=== PATIENT | female | born 1945 | race American Indian/Alaskan Native ===

== ENCOUNTER 2016-11-17 17:52 | Inpatient (IN) | payer MEDICARE ==
--- NOTE | 2016-11-17 19:00 | Emergency Department Report ---
Chief Complaint: Syncope Stated Complaint: GENERAL WEAKNESS - HPI History of Present Illness: Patient here with daughter whom states patient passed out and feels disoriented since today. Reports hx of stroke with residual left-sided weakness worsened today, seizure d /o, Dm2, HTN, current cigarette smoker. - Exam Vital Signs: Vital Signs 11/17/16 18:26 Temperature 100.0 F H Pulse Rate 89 Respiratory 14 Rate Blood Pressure 143/60 [Right] O2 Sat by Pulse 99 Oximetry Physical Exam: General: NAD. Neuro: Disoriented-appearing. Slow to respond/react. MSE screening note: Focused history and physical exam performed. Due to findings the following was ordered: ED Medical Decision Making - Medical Decision Making Patient to see MD in main ED. ED Disposition for MSE Condition: Stable
[2016-11-17 19:40] LABS: Hematocrit 43.1 % (30.3-42.9); Hemoglobin 14.6 gm/dl (10.1-14.3); Mean Corpuscular HGB Conc 34 % (30-34); Mean Corpuscular Hemoglobin 32 pg (28-32); Mean Corpuscular Volume 93 fl (79-97); Platelet Count 182 K/mm3 (140-440); Red Blood Count 4.63 M/mm3 (3.65-5.03); Red Cell Distribution Width 14.7 % (13.2-15.2); White Blood Count 9.2 K/mm3 (4.5-11.0)
[2016-11-17 19:45] LABS: INR 1.03 (0.87-1.13); Partial Thromboplastin Time 24.1 Sec. (24.2-36.6)
[2016-11-17 19:59] LABS: Alanine Aminotransferase 11 units/L (7-56); Albumin 4.4 g/dL (3.9-5); Albumin/Globulin Ratio 1.2 %; Alkaline Phosphatase 83 units/L (35-129); Anion Gap 20 mmol/L; BUN/Creatinine Ratio 9.09; Bilirubin,Total 0.3 mg/dL (0.1-1.2); Blood Urea Nitrogen 20 mg/dL (7-17); Calcium 9.4 mg/dL (8.4-10.2); Carbon Dioxide 22 mmol/L (22-30); Chloride 99.8 mmol/L (98-107); Glucose 119 mg/dL (65-100); Magnesium 2.1 mg/dL (1.7-2.3); Potassium 4.8 mmol/L (3.6-5.0); Sodium 137 mmol/L (137-145); Total Protein 8.2 g/dL (6.3-8.2)
--- NOTE | 2016-11-17 20:25 | Cat Scan Report ---
FINAL REPORT EXAM: CT HEAD/BRAIN WO CON HISTORY: neuro deficits < 6hrs or sx present upon awakening TECHNIQUE: CT head without contrast PRIORS: None. FINDINGS: There is a sellar mass present. It measures 2.1 x 3.0 centimeters. There is some thinning and bony destructive change observed. There is age related parenchymal volume loss. Patchy and confluent areas of hypodensity present in the supratentorial white matter. There is more focal hypodensity at the right caudate head internal capsule extending into the basal ganglia on the right consistent with a remote infarct. No acute intra or extra-axial hemorrhage identified. IMPRESSION: Large pituitary region mass. Differential consideration includes pituitary adenoma, meningioma or other neoplastic etiologies. Large aneurysm cannot be excluded. An MRI of the brain with pituitary protocol preferably with intravenous contrast is recommended for further evaluation Chronic small vessel ischemic changes More focal remote infarct involving the right caudate head, internal capsule and basal ganglia CTR 2 protocol initiated at the time of this dictation
[2016-11-17] MEDS ORDERED: TYLENOL PO ONE (20:56)
--- NOTE | 2016-11-17 21:01 | Emergency Department Report ---
HPI - General Chief Complaint: Syncope Time Seen by Provider: 11/17/16 20:39 - HPI HPI: Room 3 The patient is a 71-year-old female presenting with a chief complaint syncope. The patient's last known well time was last night 21:001 the patient went to sleep. The patient was awakened this morning at 11:30 but appeared disoriented. Patient had difficulty finding her shirt and seemed confused. Close to noon while the patient was sitting she slumped over and lost consciousness briefly. Family states when she came to ceasing lethargic. Family members thought the patient's blood sugar may have dropped so they gave her food. When the daughter came home at approximately 15:0 the patient still had not improved. Family states the patient tried to stand but was unable to move the left foot, subsequently EMS was called. The patient currently denies complaints. When asked how she is feeling the patient replies "good." The patient denies headache, chest pain, shortness of breath or fever at home. Family states they noticed a "cough that is out of this world" today. 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 - Family History Family history: no significant - Social History Smoking Status: Current Every Day Smoker Substance Use Type: Alcohol (occasional) ED Review of Systems ROS: Stated complaint: GENERAL WEAKNESS Other details as noted in HPI Comment: All other systems reviewed and negative Constitutional: fever Eyes: denies: eye pain, eye discharge, vision change ENT: denies: ear pain, throat pain Respiratory: cough Cardiovascular: denies: chest pain, palpitations Endocrine: no symptoms reported Gastrointestinal: denies: abdominal pain, nausea, diarrhea Genitourinary: denies: urgency, dysuria, discharge Musculoskeletal: denies: back pain, joint swelling, arthralgia Skin: denies: rash, lesions Neurological: confusion, other (syncope). denies: headache Psychiatric: denies: anxiety, depression Hematological/Lymphatic: denies: easy bleeding, easy bruising Physical Exam - Physical Exam Vital Signs: Vital Signs 11/17/16 11/17/16 11/17/16 18:26 20:33 20:37 Temperature 100.0 F H Pulse Rate 89 78 76 Respiratory 14 12 28 H Rate Blood Pressure 148/57 Blood Pressure 143/60 [Right] O2 Sat by Pulse 99 97 Oximetry 11/17/16 20:54 Temperature 102.5 F H Pulse Rate Respiratory Rate Blood Pressure Blood Pressure [Right] O2 Sat by Pulse Oximetry Physical Exam: GENERAL: The patient is well-developed well-nourished female sitting on stretcher not appearing to be in acute distress. [] HEENT: Normocephalic. Atraumatic. Extraocular motions are intact. Patient has moist mucous membranes. NECK: Supple. No meningitic signs are noted. Trachea midline CHEST/LUNGS: Clear to auscultation. There is no respiratory distress noted. Occasional cough HEART/CARDIOVASCULAR: Regular. There is no tachycardia. There is no gallop rub or murmur. ABDOMEN: Abdomen is soft, nontender. Patient has normal bowel sounds. There is no abdominal distention. SKIN: There is no rash. There is no edema. There is no diaphoresis. NEURO: The patient is awake and oriented. The patient is cooperative. Cranial nerves II through XII grossly intact. Patient is not fully cooperative with neurological exam. The patient has normal speech MUSCULOSKELETAL: There is no evidence of acute injury. ED Course Vital Signs 11/17/16 11/17/16 11/17/16 18:26 20:33 20:37 Temperature 100.0 F H Pulse Rate 89 78 76 Respiratory 14 12 28 H Rate Blood Pressure 148/57 Blood Pressure 143/60 [Right] O2 Sat by Pulse 99 97 Oximetry 11/17/16 20:54 Temperature 102.5 F H Pulse Rate Respiratory Rate Blood Pressure Blood Pressure [Right] O2 Sat by Pulse Oximetry ED Medical Decision Making - Lab Data Result diagrams: 11/17/16 19:10 11/17/16 19:10 Laboratory Tests 11/17/16 11/17/16 11/17/16 19:10 19:10 19:10 WBC 9.2 RBC 4.63 Hgb 14.6 H Hct 43.1 H MCV 93 MCH 32 MCHC 34 RDW 14.7 Plt Count 182 Add Manual Diff Complete Total Counted 100 Seg Neuts % (Manual) 87.0 H Band Neutrophils % 1.0 Lymphocytes % (Manual) 9.0 L Reactive Lymphs % (Man) 0 Monocytes % (Manual) 3.0 Eosinophils % (Manual) 0 Basophils % (Manual) 0 Metamyelocytes % 0 Myelocytes % 0 Promyelocytes % 0 Blast Cells % 0 Nucleated RBC % Not Reportable Seg Neutrophils # Man 8.0 H Band Neutrophils # 0.1 Lymphocytes # (Manual) 0.8 L Abs React Lymphs (Man) 0.0 Monocytes # (Manual) 0.3 Eosinophils # (Manual) 0.0 Basophils # (Manual) 0.0 Metamyelocytes # 0.0 Myelocytes # 0.0 Promyelocytes # 0.0 Blast Cells # 0.0 WBC Morphology Not Reportable Hypersegmented Neuts Not Reportable Hyposegmented Neuts Not Reportable Hypogranular Neuts Not Reportable Smudge Cells Not Reportable Toxic Granulation Not Reportable Toxic Vacuolation Not Reportable Dohle Bodies Not Reportable Pelger-Huet Anomaly Not Reportable Cindy Rods Not Reportable Platelet Estimate Consistent w auto Clumped Platelets Not Reportable Plt Clumps, EDTA Not Reportable Large Platelets Not Reportable Giant Platelets Not Reportable Platelet Satelliting Not Reportable Plt Morphology Comment Not Reportable RBC Morphology Not Reportable Dimorphic RBCs Not Reportable Polychromasia Not Reportable Hypochromasia Not Reportable Poikilocytosis Not Reportable Anisocytosis 1+ Microcytosis Not Reportable Macrocytosis Not Reportable Spherocytes Not Reportable Pappenheimer Bodies Not Reportable Sickle Cells Not Reportable Target Cells Not Reportable Tear Drop Cells Not Reportable Ovalocytes 1+ Helmet Cells Not Reportable [place] Bodies Not Reportable [place] Rings Not Reportable Lily Cells Not Reportable Bite Cells Not Reportable Crenated Cell Not Reportable Elliptocytes Not Reportable Acanthocytes (Spur) Not Reportable Rouleaux Not Reportable Hemoglobin C Crystals Not Reportable Schistocytes Not Reportable Malaria parasites Not Reportable [place] Bodies Not Reportable Hem Pathologist Commnt No PT 13.4 INR 1.03 APTT 24.1 L Thrombin Time Sodium 137 Potassium 4.8 Chloride 99.8 Carbon Dioxide 22 Anion Gap 20 BUN 20 H Creatinine 2.2 H Estimated GFR 26 BUN/Creatinine Ratio 9.09 Glucose 119 H Lactic Acid Calcium 9.4 Magnesium 2.1 Total Bilirubin 0.3 AST 13 ALT 11 Alkaline Phosphatase 83 Total Creatine Kinase CK-MB (CK-2) CK-MB (CK-2) Rel Index Troponin T < 0.010 Total Protein 8.2 Albumin 4.4 Albumin/Globulin Ratio 1.2 TSH Free T4 Salicylates Acetaminophen Plasma/Serum Alcohol 11/17/16 11/17/16 11/17/16 19:10 19:10 19:10 WBC RBC Hgb Hct MCV MCH MCHC RDW Plt Count Add Manual Diff Total Counted Seg Neuts % (Manual) Band Neutrophils % Lymphocytes % (Manual) Reactive Lymphs % (Man) Monocytes % (Manual) Eosinophils % (Manual) Basophils % (Manual) Metamyelocytes % Myelocytes % Promyelocytes % Blast Cells % Nucleated RBC % Seg Neutrophils # Man Band Neutrophils # Lymphocytes # (Manual) Abs React Lymphs (Man) Monocytes # (Manual) Eosinophils # (Manual) Basophils # (Manual) Metamyelocytes # Myelocytes # Promyelocytes # Blast Cells # WBC Morphology Hypersegmented Neuts Hyposegmented Neuts Hypogranular Neuts Smudge Cells Toxic Granulation Toxic Vacuolation Dohle Bodies Pelger-Huet Anomaly Cindy Rods Platelet Estimate Clumped Platelets Plt Clumps, EDTA Large Platelets Giant Platelets Platelet Satelliting Plt Morphology Comment RBC Morphology Dimorphic RBCs Polychromasia Hypochromasia Poikilocytosis Anisocytosis Microcytosis Macrocytosis Spherocytes Pappenheimer Bodies Sickle Cells Target Cells Tear Drop Cells Ovalocytes Helmet Cells [place] Bodies [place] Rings Lily Cells Bite Cells Crenated Cell Elliptocytes Acanthocytes (Spur) Rouleaux Hemoglobin C Crystals Schistocytes Malaria parasites Juno Bodies Hem Pathologist Commnt PT INR APTT Thrombin Time Sodium Potassium Chloride Carbon Dioxide Anion Gap BUN Creatinine Estimated GFR BUN/Creatinine Ratio Glucose Lactic Acid 2.5 H* Calcium Magnesium Total Bilirubin AST ALT Alkaline Phosphatase Total Creatine Kinase CK-MB (CK-2) CK-MB (CK-2) Rel Index Troponin T Total Protein Albumin Albumin/Globulin Ratio TSH Free T4 Salicylates < 0.3 L Acetaminophen < 15.0 Plasma/Serum Alcohol 11/17/16 11/17/16 11/17/16 19:10 19:10 19:10 WBC RBC Hgb Hct MCV MCH MCHC RDW Plt Count Add Manual Diff Total Counted Seg Neuts % (Manual) Band Neutrophils % Lymphocytes % (Manual) Reactive Lymphs % (Man) Monocytes % (Manual) Eosinophils % (Manual) Basophils % (Manual) Metamyelocytes % Myelocytes % Promyelocytes % Blast Cells % Nucleated RBC % Seg Neutrophils # Man Band Neutrophils # Lymphocytes # (Manual) Abs React Lymphs (Man) Monocytes # (Manual) Eosinophils # (Manual) Basophils # (Manual) Metamyelocytes # Myelocytes # Promyelocytes # Blast Cells # WBC Morphology Hypersegmented Neuts Hyposegmented Neuts Hypogranular Neuts Smudge Cells Toxic Granulation Toxic Vacuolation Dohle Bodies Pelger-Huet Anomaly Cindy Rods Platelet Estimate Clumped Platelets Plt Clumps, EDTA Large Platelets Giant Platelets Platelet Satelliting Plt Morphology Comment RBC Morphology Dimorphic RBCs Polychromasia Hypochromasia Poikilocytosis Anisocytosis Microcytosis Macrocytosis Spherocytes Pappenheimer Bodies Sickle Cells Target Cells Tear Drop Cells Ovalocytes Helmet Cells [place] Bodies [place] Rings Lily Cells Bite Cells Crenated Cell Elliptocytes Acanthocytes (Spur) Rouleaux Hemoglobin C Crystals Schistocytes Malaria parasites Juno Bodies Hem Pathologist Commnt PT INR APTT Thrombin Time 15.8 Sodium Potassium Chloride Carbon Dioxide Anion Gap BUN Creatinine Estimated GFR BUN/Creatinine Ratio Glucose Lactic Acid Calcium Magnesium Total Bilirubin AST ALT Alkaline Phosphatase Total Creatine Kinase 96 CK-MB (CK-2) < 1.0 CK-MB (CK-2) Rel Index 1.0 Troponin T < 0.010 Total Protein Albumin Albumin/Globulin Ratio TSH Free T4 Salicylates Acetaminophen Plasma/Serum Alcohol < 0.01 11/17/16 19:10 WBC RBC Hgb Hct MCV MCH MCHC RDW Plt Count Add Manual Diff Total Counted Seg Neuts % (Manual) Band Neutrophils % Lymphocytes % (Manual) Reactive Lymphs % (Man) Monocytes % (Manual) Eosinophils % (Manual) Basophils % (Manual) Metamyelocytes % Myelocytes % Promyelocytes % Blast Cells % Nucleated RBC % Seg Neutrophils # Man Band Neutrophils # Lymphocytes # (Manual) Abs React Lymphs (Man) Monocytes # (Manual) Eosinophils # (Manual) Basophils # (Manual) Metamyelocytes # Myelocytes # Promyelocytes # Blast Cells # WBC Morphology Hypersegmented Neuts Hyposegmented Neuts Hypogranular Neuts Smudge Cells Toxic Granulation Toxic Vacuolation Dohle Bodies Pelger-Huet Anomaly Cindy Rods Platelet Estimate Clumped Platelets Plt Clumps, EDTA Large Platelets Giant Platelets Platelet Satelliting Plt Morphology Comment RBC Morphology Dimorphic RBCs Polychromasia Hypochromasia Poikilocytosis Anisocytosis Microcytosis Macrocytosis Spherocytes Pappenheimer Bodies Sickle Cells Target Cells Tear Drop Cells Ovalocytes Helmet Cells [place] Bodies [place] Rings [place] Cells Bite Cells Crenated Cell Elliptocytes Acanthocytes (Spur) Rouleaux Hemoglobin C Crystals Schistocytes Malaria parasites Juno Bodies Hem Pathologist Commnt PT INR APTT Thrombin Time Sodium Potassium Chloride Carbon Dioxide Anion Gap BUN Creatinine Estimated GFR BUN/Creatinine Ratio Glucose Lactic Acid Calcium Magnesium Total Bilirubin AST ALT Alkaline Phosphatase Total Creatine Kinase CK-MB (CK-2) CK-MB (CK-2) Rel Index Troponin T Total Protein Albumin Albumin/Globulin Ratio TSH 0.592 Free T4 0.78 Salicylates Acetaminophen Plasma/Serum Alcohol - Radiology Data Radiology results: report reviewed (CT head), image reviewed (CT head, chest x- ray) interpreted by me: Chest x-ray-no focal infiltrates, no pneumothorax CT head (read by radiologist)- large pituitary region mass. Differential consideration includes pituitary adenoma, meningioma of the neoplastic etiologies. Large aneurysm cannot be excluded. An MRI of the brain with pituitary protocol preferably with IV contrast is recommended for further evaluation. Chronic small vessel ischemic changes. More focal motor infarct involving the right caudate head, internal capsule and basal ganglia. - Differential Diagnosis syncope, ICH, intracranial mass, pneumonia, hypoglycemia Critical care attestation.: If time is entered above; I have spent that time in minutes in the direct care of this critically ill patient, excluding procedure time. ED Disposition Clinical Impression: Syncope, Fever Disposition: OP ADMITTED IP TO THIS HOSP Is pt being admited?: Yes Does the pt Need Aspirin: Yes Condition: Fair Instructions: Syncope (ED) Referrals: REJI WORRELL [Other] - 3-5 Days Time of Disposition: 21:53 (hospitalist paged)
[2016-11-17 21:09] LABS: Creatine Kinase 96 units/L (30-135)
[2016-11-17 21:26] LABS: Creatine Kinase MB < 1.0 ng/mL (0.0-4.0)
[2016-11-17 21:49] LABS: Basophils % (Manual) 0 % (0.0-1.8); Blastocytes % (Manual) 0 %; Eosinophils % (Manual) 0 % (0.0-4.3)
[2016-11-17 21:50] LABS: Anisocytosis 1+; Diff Status Complete; Ovalocytes 1+; Platelet Estimate Consistent w Auto
[2016-11-17 23:05] LABS: Bilirubin,Urine NEG (Negative); Blood,Urine LG (Negative); Ketones,Urine NEG (Negative); Leukocyte Esterase,Urine NEG (Negative); Mucus,Urine FEW /HPF; Nitrite,Urine NEG (Negative); Urobilinogen,Urine < 2.0 mg/dL (<2.0)
[2016-11-17] MEDS ORDERED: ASPIRIN PO ONE (23:13)
--- NOTE | 2016-11-18 00:05 | Admit Criteria Form ---
Admission Criteria Documentation: SYNCOPE Clinical Indications for Admission to Inpatient Care ( Place 'X' for any and all applicable criteria): Admission is indicated for syncope and ANY ONE of the following (1)(2)(3)(4)(5) (6)(7) : [ X]I. Inpatient admission required rather than observation care (Also use Syncope: Observation Care Criteria as appropriate) because of ANY ONE of the following: [ ]a) Hemodynamic instability that is severe or persistent [ ]b) Cardiac arrhythmias of immediate concern identified or strongly suspected (eg, needs electrophysiologic study) [ ]c) Acute coronary syndrome identified (Also use Myocardial Infarction or Angina Criteria form ) [ ]d) Structural cardiac disorder (eg, aortic stenosis) suspected as cause that requires immediate correction [ ]e) Respiratory symptoms (eg, dyspnea, tachypnea) that are severe or persistent [ ]f) Neurologic signs or symptoms that are severe or persistent ( eg, stroke, seizures, altered mental status) [ ]g) Severe electrolyte abnormalities requiring inpatient care [ ]h) Supplemental oxygen or respiratory treatment for over 24 hrs that are performable only in acute inpatient setting [ ]i) IV fluid to replace significant ongoing (eg, for over 24 hrs ) losses (>3 L/m2 per day) [ ]j) Continuous intravenous infusion of anticoagulation, platelet inhibitor, vasoactive, or antiarrhythmic medication(15)(16) [ ]k) Pulmonary artery catheter monitoring [ ]l) Temporary pacemaker placement(17) [ ]m) Emergent cardioversion(18) [ X]n) Other conditions, treatment or monitoring requiring inpatient admission [ ]II. Suspicion of imminently dangerous cause (eg, rare causes like pericardial tamponade, pulmonary embolism) [ ]III. Syncope causing severe injury requiring hospitalization Extended stay beyond goal length of stay may be needed for(28) [ ]a) Dangerous arrhythmia(15)(23)(27)(29) [ ]b) Myocardial ischemia [ ]c) Seizure disorder [ ]d) Syncope-related injuries The original [employer] content created by [employer] has been revised. The portions of the content which have been revised are identified through the use of italic text or in bold, and Jorge L [employer] has neither reviewed nor approved the modified material. All other unmodified content is copyright [employer]. Please see references footnoted in the original [facility] edition 2016 Admission Criteria Met: Yes
--- NOTE | 2016-11-18 01:40 | Nuclear Medicine Report ---
FINAL REPORT PROCEDURE: NM LUNG SCAN PERF/VENT TECHNIQUE: 5 mCi Tc-99m MAA was injected IV for pulmonary perfusion imaging in multiple projections. 15 MCi xenon-133 was inhaled for pulmonary ventilation imaging in multiple projections. Injection site: RIGHT antecubital fossa. CPT 94036 REGULATORY GUIDELINES: The patient was released based upon guidelines established in [place] State Regulations for Protection Against Radiation, Chapter 6623-26-55-35, Release of Individuals Containing Radioactive Drugs or Implants. HISTORY: eval for pe COMPARISON: No prior studies are available for comparison. FINDINGS: Perfusion: No defects . Ventilation: No defects . IMPRESSION: Normal Examination. There is no evidence of pulmonary embolism.
--- NOTE | 2016-11-18 02:48 | History and Physical Report ---
[id number] History of present illness: 71-year-old woman history of hypertension, diabetes, hypothyroidism comes to the emergency room because while she was sitting at home she had a syncopal episode that lasted for 5 minutes. Family state that she had difficulty walking , she is confused. The brought her to the emergency room for further evaluation Patient denies chest pain, palpitation, shortness of breath, cough, abdominal pain, hematochezia, dysuria, frequency, dysarthria, fever chills, polydipsia polyuria, hot or cold intolerance, easy bruisability, or rash or bleeding from mucosal membrane, rhinorrhea, epistaxis, earache, tinnitus, blurry vision, eye discharge, anxiety, depression. Other review of systems negative PAST SURGICAL HISTORY: Hysterectomy SOCIAL HISTORY: A pack a day, social alcohol use, no drugs FAMILY HISTORY: Hypertension Medications and Allergies Allergies Allergy/AdvReac Type Severity Reaction Status Date / Time No Known Allergies Allergy Verified 11/17/16 23:23 Home Medications Medication Instructions Recorded Confirmed Last Taken Type Levothyroxine [Synthroid] 25 mcg PO QAM 11/17/16 11/17/16 1 Day Ago History Lisinopril [Zestril TAB] 5 mg PO QDAY 11/17/16 11/17/16 1 Day Ago History Simvastatin [Zocor TAB] 20 mg PO QHS 11/17/16 11/17/16 1 Day Ago History Sitagliptin Phosphate [Januvia] 100 mg PO DAILY 11/17/16 11/17/16 1 Day Ago History amLODIPine [Norvasc] 5 mg PO DAILY 11/17/16 11/17/16 1 Day Ago History glipiZIDE [Glucotrol] 5 mg PO BID 11/17/16 11/17/16 1 Day Ago History Clopidogrel [Plavix] 75 mg PO QDAY #30 tablet 11/22/16 Unknown Rx Active Meds: Active Medications Sodium Chloride (Nacl 0.9% 1000 Ml) 1,000 mls @ 75 mls/hr IV DIRECT MARY Exam - Physical Exam Narrative exam: Gen. appearance: Patient lying in bed, no apparent distress HEENT: Normocephalic, atraumatic, pupils equally round and reactive to light, extraocular movement intact, and no sclericterus,. No JVD or thyromegaly or nodule,neck supple, no carotid bruit ,mucous membranes moist, no exudate or erythema Heart: S1, S2, regular rate and rhythm Lungs: Clear to auscultation bilaterally, breathing comfortable Abdomen: Positive bowel sounds, nontender, nondistended, no organomegaly Extremity: No edema, cyanosis, clubbing Skin: No rash, nodules, warm, dry Neuro: Oriented 3, cranial nerves II-12 intact, speech is fluent, left side weakness 4/5 - Constitutional Vitals: Temp Pulse Resp BP Pulse Ox 102.5 F H 82 22 144/57 97 11/17/16 20:54 11/17/16 22:01 11/17/16 22:01 11/17/16 22:01 11/17/16 22:01 Results - Labs CBC & Chem 7: 11/22/16 04:58 11/22/16 04:58 - Imaging and Cardiology EKG: image reviewed (nsr 80, read by me) Chest x-ray: image reviewed (nad, read by me) Assessment and Plan Acute CVA Syncope SIRS Hypertension Diabetes type 2 Admits medicine Obtain MRI of the head, carotid Doppler, echo Do neurochecks, swallow screen Check cardiac enzymes, d-dimer, fingersticks initiate insulin sliding scale Diet IV hydralazine as needed for blood pressure control Start aspirin, statin, DVT prophylaxis Start emperic antibiotic pending cultures Consult neurology, physical and occupational therapy D-dimer positive, obtain VQ scan
[2016-11-18] MEDS ORDERED: MILK OF MAGNESIA PO PRN (05:37)
[2016-11-18] MEDS ORDERED: SODIUM CHLORIDE FLUSH SYRINGE 10 ML IV PRN (05:37)
[2016-11-18] MEDS ORDERED: DULCOLAX PR PRN (05:37)
[2016-11-18] MEDS ORDERED: D50W (25GM) IV PRN (05:37)
[2016-11-18] MEDS ORDERED: TYLENOL PO PRN (05:37)
[2016-11-18] MEDS ORDERED: ZOFRAN IV PRN (05:37)
[2016-11-18] MEDS ORDERED: APRESOLINE IV PRN (05:37)
--- NOTE | 2016-11-18 08:04 | XRay Report ---
PORTABLE CHEST: An AP portable view of the chest demonstrates a normal cardiac contour considering the limits of this technique. The lungs are clear with no evidence of infiltrate, fluid or failure. IMPRESSION: Normal portable chest.
[2016-11-18 08:57] LABS: Creatine Kinase MB 1.6 ng/mL (0.0-4.0)
[2016-11-18 08:58] LABS: Cholesterol 187 mg/dL (50-199); Creatine Kinase 207 units/L (30-135); HDL Cholesterol 44 mg/dL (40-59); LDL Cholesterol,Direct 127 mg/dL (50-130); Triglycerides 81 mg/dL (2-149)
[2016-11-18] MEDS: NOVOLOG SUB-Q SCH ×4 (09:08→23:27)
[2016-11-18] MEDS ORDERED: LOVENOX SUB-Q SCH (10:00)
[2016-11-18] MEDS ORDERED: LEVAQUIN PO SCH (10:00)
--- NOTE | 2016-11-18 10:44 | Event Note ---
Date: 11/18/16 Patient seen and examined. We will continue the plan as outlined in the H&P.
[2016-11-18] MEDS: LOVENOX SUB-Q SCH (11:00)
[2016-11-18] MEDS: ASPIRIN PO SCH (11:23)
[2016-11-18 12:39] LABS: Creatine Kinase MB 1.3 ng/mL (0.0-4.0)
[2016-11-18 12:41] LABS: Creatine Kinase 209 units/L (30-135)
[2016-11-18] MEDS: LEVAQUIN PO SCH (12:54)
--- NOTE | 2016-11-18 15:38 | Magnetic Resonance Report ---
MRI OF THE BRAIN WITHOUT CONTRAST: PROCEDURE: Routine brain protocol without contrast. FINDINGS: Minimal chronic ischemic changes are seen in the brainstem. Chronic lacunar infarcts are seen in the basal ganglia bilaterally. There are scattered areas of hyperintense T2 and FLAIR signal in the periventricular white matter, slightly more pronounced on the right. There are no intra-axial masses or extra-axial collections. The posterior fossa is otherwise unremarkable. There is no restricted diffusion. Cortical atrophy is present. The ventricles are slightly prominent but otherwise unremarkable. There is a prominent mass lesion in the pituitary gland. The approximate dimensions are 2.3 x 2.4 x 1.4 cm. The larger portion of the soft tissue density is slightly eccentric to the left. There is no extrinsic compression of the optic chiasm. The signal characteristics are slightly heterogeneous on T2 images with no definite cystic component. The remaining visualized extracranial structures are normal. IMPRESSION: 1. No acute findings. 2. Prominent pituitary mass. Differential diagnosis is limited without intravenous contrast. The primary considerations are pituitary macroadenoma, meningioma, craniopharyngioma. 3. Bilateral chronic lacunar infarcts with extensive periventricular microangiopathic ischemic changes.
--- NOTE | 2016-11-18 18:04 | Echocardiography Report ---
Transthoracic Echocardiogram Indication: Stroke BP: 137/52 Findings Left Ventricle: The left ventricular chamber size is normal. Mild concentric left ventricular hypertrophy is observed. Global left ventricular wall motion and contractility are within normal limits. Global left ventricular systolic function is normal. The estimated ejection fraction is 60-65%. Abnormal left ventricular diastolic filling is observed, consistent with impaired relaxation. Left Atrium: The left atrial chamber size is normal. Right Ventricle: The right ventricular cavity size is normal. The right ventricular global systolic function is normal. Right Atrium: The right atrial cavity size is normal. The interatrial septum appears normal. Aortic Valve: The aortic valve structure is normal. There is trace of aortic regurgitation. There is no evidence of aortic stenosis. Mitral Valve: The mitral valve leaflets appear normal. There is trace of mitral regurgitation. There is no evidence of mitral stenosis. Tricuspid Valve: The tricuspid valve leaflets are normal. There is mild tricuspid regurgitation. The right ventricular systolic pressure is calculated at 31 mmHg. There is evidence of mild pulmonary hypertension. There is no tricuspid stenosis. Pulmonic Valve: The pulmonic valve appears normal. There is trace pulmonic regurgitation. There is no pulmonic stenosis. Pericardium: There is no pericardial effusion. Aorta: There is no dilatation of the aortic root. Venous: The inferior vena cava appears normal in size. Contrast: Intravenous agitated saline contrast was used to assess intracardiac shunting. Measurements Chambers MM Name Value Normal Range Ao root diameter (MM) 3 cm (2 - 3.7) LA dimension (AP) MM 2.7 cm (1.9 - 4) LA:Ao ratio (MM) 0.9 ratio - AV cusp separation (MM) 1.5 cm (1.5 - 2.6) Chambers 2D Name Value Normal Range IVSd (2D) 1.07 cm (0.6 - 1.1) LVPWd (2D) 1 cm (0.6 - 1.1) IVS:LVPW ratio (2D) 1.07 ratio - LVIDd (2D) 3.47 cm (3.7 - 5.6) LVIDs (2D) 2.27 cm (2 - 3.8) LV FS (Teichholz) (2D) 34.6 % - LV FS (cube) (2D) 34.6 % - EF Teichholz (2D) 64.9 % - LA dimension (AP) 2D 2.9 cm (1.9 - 4) Volumes/Mass Name Value Normal Range LA ESV SP 4CH (MOD) 18 ml - LA ESV SP 2CH (MOD) 16 ml - LA ESV BP (MOD) 18 ml - LA ESV BP (MOD) index 10.5 ml/m2 - Diastolic/Systolic Function Name Value Normal Range MV E-wave Vmax 0.57 m/sec - MV deceleration time 239 msec - MV A-wave Vmax 0.83 m/sec - MV E:A ratio 0.7 ratio - LV septal e' Vmax 0.08 m/sec - LV lateral e' Vmax 0.11 m/sec - LV E:e' septal ratio 6.9 ratio - LV E:e' lateral ratio 5 ratio - Aortic Valve Name Value Normal Range AV VTI 27.9 cm - AV mean gradient 5 mmHg - LVOT diameter 2 cm - LVOT VTI 27 cm - LVOT mean gradient 4 mmHg - SV LVOT 85 ml - BON (continuity VTI) 3.04 cm2 - Mitral Valve Name Value Normal Range MV PHT 54 msec - MVA (PHT) 4.07 cm2 - Tricuspid Valve Name Value Normal Range TR Vmax 2.65 m/sec - TR peak gradient 28 mmHg - RAP 3 mmHg - RVSP 31 mmHg - Pulmonic Valve/Qp:Qs Name Value Normal Range PV Vmax 0.82 m/sec - PV peak gradient 3 mmHg - HI end-diastolic Vmax 0.62 m/sec - PV acceleration time 134 msec -
[2016-11-18] MEDS: ZOCOR PO SCH (21:57)
--- NOTE | 2016-11-19 06:59 | Consultation ---
History of Present Illness Consult date: 11/19/16 Chief complaint: passed out, asked to see for CVA History of present illness: This is a 71 YO F who was brought to the hospital because she passed out. There is not a lot of history in chart and the patient can not give much. Pt was also confused per chart. On my arrival she is awake and alert, will answer questions but is a poor historian. No current complaints. Past History Past Medical History: diabetes, hypertension, hypothyroidism Past Surgical History: hysterectomy Social history: lives with family Family history: hypertension Medications and Allergies Allergies Allergy/AdvReac Type Severity Reaction Status Date / Time No Known Allergies Allergy Verified 11/17/16 23:23 Home Medications Medication Instructions Recorded Confirmed Last Taken Type Levothyroxine [Synthroid] 25 mcg PO QAM 11/17/16 11/17/16 1 Day Ago History Lisinopril [Zestril] 5 mg PO QDAY 11/17/16 11/17/16 1 Day Ago History Simvastatin [Zocor TAB] 20 mg PO QHS 11/17/16 11/17/16 1 Day Ago History Sitagliptin Phosphate [Januvia] 100 mg PO DAILY 11/17/16 11/17/16 1 Day Ago History amLODIPine [Norvasc] 5 mg PO DAILY 11/17/16 11/17/16 1 Day Ago History glipiZIDE [Glucotrol] 5 mg PO BID 11/17/16 11/17/16 1 Day Ago History Active Meds: Active Medications Acetaminophen (Tylenol) 650 mg PO Q4H PRN PRN Reason: Pain, Mild (1-3) Last Admin: 11/18/16 23:28 Dose: 650 mg Aspirin (Aspirin) 325 mg PO QDAY [facility] Last Admin: 11/18/16 11:23 Dose: 325 mg Bisacodyl (Dulcolax) 10 mg [place] QDAY PRN PRN Reason: Constipation Dextrose (D50w (25gm)) 50 ml IV PRN PRN PRN Reason: Hypoglycemia Enoxaparin Sodium (Lovenox) 30 mg SUB-Q QDAY [facility] Last Admin: 11/18/16 11:00 Dose: 30 mg Hydralazine HCl (Apresoline) 5 mg IV Q6H PRN PRN Reason: Keep SBP between 160-185 mm Hg Sodium Chloride (Nacl 0.9% 1000 Ml) 1,000 mls @ 75 mls/hr IV DIRECT [facility] Insulin Aspart (Novolog) 0 units SUB-Q ACHS [facility] PRN Reason: Protocol Last Admin: 11/18/16 23:27 Dose: 1 units Levofloxacin (Levaquin) 250 mg PO Q24HR [facility] Last Admin: 11/18/16 12:54 Dose: 250 mg Magnesium Hydroxide (Milk Of Magnesia) 30 ml PO Q4H PRN PRN Reason: Constipation Ondansetron HCl (Zofran) 4 mg IV Q8H PRN PRN Reason: N/V unrelieved by Reglan Simvastatin (Zocor) 20 mg PO QHS [facility] Last Admin: 11/18/16 21:57 Dose: 20 mg Sodium Chloride (Sodium Chloride Flush Syringe 10 Ml) 10 ml IV PRN PRN PRN Reason: LINE FLUSH Review of Systems Neurological: change in mentation Physical Examination - Vital Signs Vital Signs: Vital Signs Temp Pulse Resp BP Pulse Ox 100.0 F H 89 14 143/60 99 11/17/16 18:26 11/17/16 18:26 11/17/16 18:26 11/17/16 18:26 11/17/16 18:26 - Constitutional General appearance: comfortable - EENT EENT: Present: PERRL - Respiratory Respiratory: Present: lungs clear - Cardiovascular Cardiovascular: Present: regular rate - Neurologic Cranial nerve examination: PERRL, EOMI, VFF, face symmetric, tongue midline Speech examination: intact Detailed motor examination: grossly full strength in Reflexes: 1+: ankle, bicep, knee, tricep Results - Laboratory Findings CBC and BMP: 11/17/16 19:10 11/17/16 19:10 Abnormal Lab Findings: Abnormal Labs 11/18/16 11/18/16 11/18/16 08:06 12:05 20:58 POC Glucose 185 H Total Creatine Kinase 207 H 209 H - Diagnostic Findings Additional findings: Mri brain no acute findings, pt with pituitary mass Assessment and Plan Syncope Recommend: echo results reviewed, carotids pending MRI brain reviewed, no acute stroke, + pituitary mass which pt says she knew about previously. consider neurosurgical eval vs getting more info wi th old records Consider EEG Continue care for her medical issues as you are doing Thank you for this consult.
[2016-11-19] MEDS: NOVOLOG SUB-Q SCH ×5 (08:27→21:57)
[2016-11-19] MEDS: LOVENOX SUB-Q SCH (10:24)
[2016-11-19] MEDS: LEVAQUIN PO SCH (10:24)
[2016-11-19] MEDS: ASPIRIN PO SCH (10:24)
--- NOTE | 2016-11-19 11:34 | Progress Note ---
Assessment and Plan Assessment and plan: 1. Acute CVA. 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 Patient also with bilateral chronic lacunar infarcts with extensive periventricular microangiopathic ischemic changes. Patient exhibits some left hemiplegia. Continue aspirin. Neurology following. Echocardiogram reveals EF of 60-65% with mild concentric left ventricular hypertrophy--Otherwise normal. Carotid ultrasound pending. 2. Syncope. Echocardiogram normal and carotid ultrasound pending. Etiology likely secondary to #1. 3. Diabetes mellitus type 2, uncontrolled. Continue sliding-scale regular insulin and Accu-Cheks. 4. Hypertension. Continue antihypertensives medications. 5. Elevated d-dimer. VQ scan negative for PE. 6. Acute renal failure. Etiology likely secondary to vasomotor nephropathy. Continue IV fluid hydration. Continue to monitor renal function and Follow-up BMP in the morning. History Interval history: No new issues overnight. No chest pain or shortness of breath. Hospitalist Physical - Constitutional Vitals: Temp Pulse Resp BP Pulse Ox 98.7 F 67 18 124/57 95 11/19/16 07:35 11/19/16 07:35 11/19/16 07:35 11/19/16 07:35 11/19/16 07:35 General appearance: Present: no acute distress, well-nourished - EENT Eyes: Present: PERRL, EOM intact ENT: hearing intact, clear oral mucosa, dentition normal - Neck Neck: Present: supple, normal ROM - Respiratory Respiratory effort: normal Respiratory: bilateral: CTA - Cardiovascular Rhythm: regular Heart Sounds: Present: S1 & S2. Absent: gallop, rub - Extremities Extremities: no ischemia, No edema, Full ROM - Abdominal General gastrointestinal: soft, non-tender, non-distended, normal bowel sounds - Integumentary Integumentary: Present: clear, warm, dry - Neurologic Neurologic: CNII-XII intact, moves all extremities, other (left sided weakness) Results - Labs CBC & Chem 7: 11/17/16 19:10 11/17/16 19:10 Labs: Laboratory Last Values WBC 9.2 K/mm3 (4.5-11.0) 11/17/16 19:10 RBC 4.63 M/mm3 (3.65-5.03) 11/17/16 19:10 Hgb 14.6 gm/dl (10.1-14.3) H 11/17/16 19:10 Hct 43.1 % (30.3-42.9) H 11/17/16 19:10 MCV 93 fl (79-97) 11/17/16 19:10 MCH 32 pg (28-32) 11/17/16 19:10 MCHC 34 % (30-34) 11/17/16 19:10 RDW 14.7 % (13.2-15.2) 11/17/16 19:10 Plt Count 182 K/mm3 (140-440) 11/17/16 19:10 Add Manual Diff Complete 11/17/16 19:10 Total Counted 100 11/17/16 19:10 Seg Neuts % (Manual) 87.0 % (40.0-70.0) H 11/17/16 19:10 Band Neutrophils % 1.0 % 11/17/16 19:10 Lymphocytes % (Manual) 9.0 % (13.4-35.0) L 11/17/16 19:10 Reactive Lymphs % (Man) 0 % 11/17/16 19:10 Monocytes % (Manual) 3.0 % (0.0-7.3) 11/17/16 19:10 Eosinophils % (Manual) 0 % (0.0-4.3) 11/17/16 19:10 Basophils % (Manual) 0 % (0.0-1.8) 11/17/16 19:10 Metamyelocytes % 0 % 11/17/16 19:10 Myelocytes % 0 % 11/17/16 19:10 Promyelocytes % 0 % 11/17/16 19:10 Blast Cells % 0 % 11/17/16 19:10 Nucleated RBC % Not Reportable 11/17/16 19:10 Seg Neutrophils # Man 8.0 K/mm3 (1.8-7.7) H 11/17/16 19:10 Band Neutrophils # 0.1 K/mm3 11/17/16 19:10 Lymphocytes # (Manual) 0.8 K/mm3 (1.2-5.4) L 11/17/16 19:10 Abs React Lymphs (Man) 0.0 K/mm3 11/17/16 19:10 Monocytes # (Manual) 0.3 K/mm3 (0.0-0.8) 11/17/16 19:10 Eosinophils # (Manual) 0.0 K/mm3 (0.0-0.4) 11/17/16 19:10 Basophils # (Manual) 0.0 K/mm3 (0.0-0.1) 11/17/16 19:10 Metamyelocytes # 0.0 K/mm3 11/17/16 19:10 Myelocytes # 0.0 K/mm3 11/17/16 19:10 Promyelocytes # 0.0 K/mm3 11/17/16 19:10 Blast Cells # 0.0 K/mm3 11/17/16 19:10 WBC Morphology Not Reportable 11/17/16 19:10 Hypersegmented Neuts Not Reportable 11/17/16 19:10 Hyposegmented Neuts Not Reportable 11/17/16 19:10 Hypogranular Neuts Not Reportable 11/17/16 19:10 Smudge Cells Not Reportable 11/17/16 19:10 Toxic Granulation Not Reportable 11/17/16 19:10 Toxic Vacuolation Not Reportable 11/17/16 19:10 Dohle Bodies Not Reportable 11/17/16 19:10 Pelger-Huet Anomaly Not Reportable 11/17/16 19:10 Cindy Rods Not Reportable 11/17/16 19:10 Platelet Estimate Consistent w auto 11/17/16 19:10 Clumped Platelets Not Reportable 11/17/16 19:10 Plt Clumps, EDTA Not Reportable 11/17/16 19:10 Large Platelets Not Reportable 11/17/16 19:10 Giant Platelets Not Reportable 11/17/16 19:10 Platelet Satelliting Not Reportable 11/17/16 19:10 Plt Morphology Comment Not Reportable 11/17/16 19:10 RBC Morphology Not Reportable 11/17/16 19:10 Dimorphic RBCs Not Reportable 11/17/16 19:10 Polychromasia Not Reportable 11/17/16 19:10 Hypochromasia Not Reportable 11/17/16 19:10 Poikilocytosis Not Reportable 11/17/16 19:10 Anisocytosis 1+ 11/17/16 19:10 Microcytosis Not Reportable 11/17/16 19:10 Macrocytosis Not Reportable 11/17/16 19:10 Spherocytes Not Reportable 11/17/16 19:10 Pappenheimer Bodies Not Reportable 11/17/16 19:10 Sickle Cells Not Reportable 11/17/16 19:10 Target Cells Not Reportable 11/17/16 19:10 Tear Drop Cells Not Reportable 11/17/16 19:10 Ovalocytes 1+ 11/17/16 19:10 Helmet Cells Not Reportable 11/17/16 19:10 [place] Bodies Not Reportable 11/17/16 19:10 [place]away Rings Not Reportable 11/17/16 19:10 Lily Cells Not Reportable 11/17/16 19:10 Bite Cells Not Reportable 11/17/16 19:10 Crenated Cell Not Reportable 11/17/16 19:10 Elliptocytes Not Reportable 11/17/16 19:10 Acanthocytes (Spur) Not Reportable 11/17/16 19:10 Rouleaux Not Reportable 11/17/16 19:10 Hemoglobin C Crystals Not Reportable 11/17/16 19:10 Schistocytes Not Reportable 11/17/16 19:10 Malaria parasites Not Reportable 11/17/16 19:10 Juno Bodies Not Reportable 11/17/16 19:10 Hem Pathologist Commnt No 11/17/16 19:10 PT 13.4 Sec. (12.2-14.9) 11/17/16 19:10 INR 1.03 (0.87-1.13) 11/17/16 19:10 APTT 24.1 Sec. (24.2-36.6) L 11/17/16 19:10 Thrombin Time 15.8 Sec. (15.1-19.6) 11/17/16 19:10 D-Dimer > 73206 ng/mlDDU (0-234) H 11/17/16 19:10 Sodium 137 mmol/L (137-145) 11/17/16 19:10 Potassium 4.8 mmol/L (3.6-5.0) 11/17/16 19:10 Chloride 99.8 mmol/L (98-107) 11/17/16 19:10 Carbon Dioxide 22 mmol/L (22-30) 11/17/16 19:10 Anion Gap 20 mmol/L 11/17/16 19:10 BUN 20 mg/dL (7-17) H 11/17/16 19:10 Creatinine 2.2 mg/dL (0.7-1.2) H 11/17/16 19:10 Estimated GFR 26 ml/min 11/17/16 19:10 BUN/Creatinine Ratio 9.09 % 11/17/16 19:10 Glucose 119 mg/dL (65-100) H 11/17/16 19:10 POC Glucose 185 (70-105) H 11/18/16 20:58 Lactic Acid 2.5 mmol/L (0.7-2.0) H* 11/17/16 19:10 Calcium 9.4 mg/dL (8.4-10.2) 11/17/16 19:10 Magnesium 2.1 mg/dL (1.7-2.3) 11/17/16 19:10 Total Bilirubin 0.3 mg/dL (0.1-1.2) 11/17/16 19:10 AST 13 units/L (5-40) 11/17/16 19:10 ALT 11 units/L (7-56) 11/17/16 19:10 Alkaline Phosphatase 83 units/L (35-129) 11/17/16 19:10 Total Creatine Kinase 209 units/L (30-135) H 11/18/16 12:05 CK-MB (CK-2) 1.3 ng/mL (0.0-4.0) 11/18/16 12:05 CK-MB (CK-2) Rel Index 0.6 (0-4) 11/18/16 12:05 Troponin T < 0.010 ng/mL (0.00-0.029) 11/18/16 12:05 Total Protein 8.2 g/dL (6.3-8.2) 11/17/16 19:10 Albumin 4.4 g/dL (3.9-5) 11/17/16 19:10 Albumin/Globulin Ratio 1.2 % 11/17/16 19:10 Triglycerides 81 mg/dL (2-149) 11/18/16 08:06 Cholesterol 187 mg/dL (50-199) 11/18/16 08:06 LDL Cholesterol Direct 127 mg/dL (50-130) 11/18/16 08:06 HDL Cholesterol 44 mg/dL (40-59) 11/18/16 08:06 Cholesterol/HDL Ratio 4.25 % 11/18/16 08:06 TSH 0.592 mlU/mL (0.270-4.200) 11/17/16 19:10 Free T4 0.78 ng/dL (0.76-1.46) 11/17/16 19:10 Urine Color Yellow (Yellow) 11/17/16 22:30 Urine Turbidity Clear (Clear) 11/17/16 22:30 Urine pH 5.0 (5.0-7.0) 11/17/16 22:30 Ur Specific [place] 1.019 (1.003-1.030) 11/17/16 22:30 Urine Protein 100 mg/dl mg/dL (Negative) 11/17/16 22:30 Urine Glucose (UA) Neg mg/dL (Negative) 11/17/16 22:30 Urine Ketones Neg mg/dL (Negative) 11/17/16 22:30 Urine Blood Lg (Negative) 11/17/16 22:30 Urine Nitrite Neg (Negative) 11/17/16 22:30 Urine Bilirubin Neg (Negative) 11/17/16 22:30 Urine Urobilinogen < 2.0 mg/dL (<2.0) 11/17/16 22:30 Ur Leukocyte Esterase Neg (Negative) 11/17/16 22:30 Urine WBC (Auto) 1.0 /HPF (0.0-6.0) 11/17/16 22:30 Urine RBC (Auto) 17.0 /HPF (0.0-6.0) 11/17/16 22:30 U Epithel Cells (Auto) < 1.0 /HPF (0-13.0) 11/17/16 22:30 Urine Mucus Few /HPF 11/17/16 22:30 Salicylates < 0.3 mg/dL (2.8-20.0) L 11/17/16 19:10 Acetaminophen < 15.0 ug/mL (10.0-30.0) 11/17/16 19:10 Plasma/Serum Alcohol < 0.01 gm% (0-0.07) 11/17/16 19:10
--- NOTE | 2016-11-19 13:01 | Consultation ---
History of Present Illness - Reason for Consult Consult date: 11/19/16 Evaluate for Acute IRU - History of Present Illness 71 y.o. female admitted from home due to syncopal episode; also with associated gait dysfunction, worsening left sided weakness from baseline and altered mental status. 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 On today, pt and family report knowledge of mass; diagnosed many years ago when patient lived in [place]. Pt noted to have some deficits with mobility since admission. Consult requested for post-acute care placement recommendations. Past History Past Medical History: diabetes, hypertension, hypothyroidism, seizures, stroke, other (pituitary mass) Past Surgical History: hysterectomy Social history: lives with family (dtr), smoking Family history: diabetes, hypertension, stroke Medications and Allergies Allergies Allergy/AdvReac Type Severity Reaction Status Date / Time No Known Allergies Allergy Verified 11/17/16 23:23 Home Medications Medication Instructions Recorded Confirmed Last Taken Type Levothyroxine [Synthroid] 25 mcg PO QAM 11/17/16 11/17/16 1 Day Ago History Lisinopril [Zestril] 5 mg PO QDAY 11/17/16 11/17/16 1 Day Ago History Simvastatin [Zocor TAB] 20 mg PO QHS 11/17/16 11/17/16 1 Day Ago History Sitagliptin Phosphate [Januvia] 100 mg PO DAILY 11/17/16 11/17/16 1 Day Ago History amLODIPine [Norvasc] 5 mg PO DAILY 11/17/16 11/17/16 1 Day Ago History glipiZIDE [Glucotrol] 5 mg PO BID 11/17/16 11/17/16 1 Day Ago History Levofloxacin [Levaquin TAB] 500 mg PO QDAY #5 tablet 11/19/16 Unknown Rx Active Meds: Active Medications Acetaminophen (Tylenol) 650 mg PO Q4H PRN PRN Reason: Pain, Mild (1-3) Last Admin: 11/18/16 23:28 Dose: 650 mg Aspirin (Aspirin) 325 mg PO QDAY [facility] Last Admin: 11/19/16 10:24 Dose: 325 mg Bisacodyl (Dulcolax) 10 mg [place] QDAY PRN PRN Reason: Constipation Dextrose (D50w (25gm)) 50 ml IV PRN PRN PRN Reason: Hypoglycemia Enoxaparin Sodium (Lovenox) 30 mg SUB-Q QDAY [facility] Last Admin: 11/19/16 10:24 Dose: 30 mg Hydralazine HCl (Apresoline) 5 mg IV Q6H PRN PRN Reason: Keep SBP between 160-185 mm Hg Sodium Chloride (Nacl 0.9% 1000 Ml) 1,000 mls @ 75 mls/hr IV DIRECT [facility] Insulin Aspart (Novolog) 0 units SUB-Q ACHS [facility] PRN Reason: Protocol Last Admin: 11/19/16 12:00 Dose: Not Given Levofloxacin (Levaquin) 250 mg PO Q24HR [facility] Last Admin: 11/19/16 10:24 Dose: 250 mg Magnesium Hydroxide (Milk Of Magnesia) 30 ml PO Q4H PRN PRN Reason: Constipation Ondansetron HCl (Zofran) 4 mg IV Q8H PRN PRN Reason: N/V unrelieved by Reglan Simvastatin (Zocor) 20 mg PO QHS [facility] Last Admin: 11/18/16 21:57 Dose: 20 mg Sodium Chloride (Sodium Chloride Flush Syringe 10 Ml) 10 ml IV PRN PRN PRN Reason: LINE FLUSH Review of Systems All systems: negative Eyes: bilateral: other (denies any visual changes) Ears, nose, mouth and throat: no headache Cardiovascular: no chest pain, no syncope Respiratory: no cough, no shortness of breath Gastrointestinal: no nausea, no vomiting Genitourinary Female: other (vasquez) Musculoskeletal: gait dysfunction, frequent falls Exam - Constitutional Vitals: Vital Signs - 12hr 11/19/16 11/19/16 11/19/16 04:40 07:35 11:37 Temperature 98.8 F 98.7 F 98.7 F Pulse Rate [ 67 65 Left Radial] Pulse Rate [ 69 Right Radial] Respiratory 18 18 18 Rate Blood Pressure 120/61 124/57 136/64 [Left Arm] O2 Sat by Pulse 97 95 97 Oximetry 11/19/16 12:13 Temperature Pulse Rate [ Left Radial] Pulse Rate [ Right Radial] Respiratory Rate Blood Pressure [Left Arm] O2 Sat by Pulse 95 Oximetry General appearance: no acute distress, other (sisters present in room) - EENT Eyes: EOM intact ENT: hearing intact - Neck Neck: supple, normal ROM - Respiratory Respiratory effort: normal Respiratory: bilateral: CTA - Cardiovascular Rhythm: regular Heart Sounds: Present: S1 & S2 - Extremities Extremities: No edema - Gastrointestinal General gastrointestinal: Present: soft, non-tender, non-distended, normal bowel sounds - Integumentary Integumentary: Present: clear - Neurologic Neurologic: CNII-XII intact, moves all extremities, other (delayed processing) - Psychiatric Psychiatric: appropriate mood/affect, memory intact (oriented to self, family; place, city and state), cooperative - Allied health notes Allied health notes reviewed: PT (modA for transfers and gait on yesterday; now Giovani with increased gait distance per treating therapist) FIMS assesment as documented by PT/OT/ST: Locomotion- walk/wheelchair Ambulation Distance 26 - Labs CBC & Chem 7: 11/19/16 13:07 11/17/16 19:10 Labs: Laboratory Results - last 72 hr 11/18/16 11/18/16 11/18/16 08:06 08:33 12:05 POC Glucose 98 Total Creatine Kinase 207 H 209 H CK-MB (CK-2) 1.6 1.3 CK-MB (CK-2) Rel Index 0.7 0.6 Troponin T < 0.010 < 0.010 Triglycerides 81 Cholesterol 187 LDL Cholesterol Direct 127 HDL Cholesterol 44 Cholesterol/HDL Ratio 4.25 11/18/16 11/18/16 11/18/16 12:51 15:31 20:58 POC Glucose 109 H 104 185 H Total Creatine Kinase CK-MB (CK-2) CK-MB (CK-2) Rel Index Troponin T Triglycerides Cholesterol LDL Cholesterol Direct HDL Cholesterol Cholesterol/HDL Ratio - Imaging and cardiology CT Scan - head: pending MRI - head: pending Assessment and Plan Patient was assessed and evaluated for Acute Inpatient Rehab Unit. 71 y.o. female s/p syncopal episode, acute CVA ruled out. Pt has a history of seizures and is noted to have chronic lacunar infarcts on MRI; also with known pituitary mass. It is unclear if this has increased in size as pt was informed of this many years ago in [place]; no films for comparison. Functionally, pt is not at baseline, currently requiring Giovani for transfers and gait; previously was independent with mobility and self cares, however, per report with increased falls prior to admission. Ongoing work-up per primary team for etiology of syncopal episode; IVF for acute renal failure also noted on admission. Will continue to follow progress with therapies; pending possible EEG. Thank you for consultation. - Patient Problems (1) Chronic cerebrovascular accident (CVA) Current Visit: Yes Status: Acute (2) Abnormality of gait following cerebrovascular accident (CVA) Current Visit: Yes Status: Acute (3) Pituitary mass Current Visit: Yes Status: Acute (4) Seizure disorder Current Visit: Yes Status: Acute
[2016-11-19 13:44] LABS: Basophils % (Auto) 0.5 % (0.0-1.8); Eosinophils % (Auto) 1.6 % (0.0-4.3); Hematocrit 38.3 % (30.3-42.9); Hemoglobin 12.9 gm/dl (10.1-14.3); Mean Corpuscular HGB Conc 34 % (30-34); Mean Corpuscular Hemoglobin 31 pg (28-32); Mean Corpuscular Volume 92 fl (79-97); Platelet Count 144 K/mm3 (140-440); Red Blood Count 4.16 M/mm3 (3.65-5.03); Red Cell Distribution Width 14.6 % (13.2-15.2); White Blood Count 4.8 K/mm3 (4.5-11.0)
[2016-11-19 13:54] LABS: BUN/Creatinine Ratio 13.33; Calcium 8.3 mg/dL (8.4-10.2); Chloride 104.5 mmol/L (98-107); Potassium 4.1 mmol/L (3.6-5.0)
[2016-11-19] MEDS: ZOCOR PO SCH (21:55)
[2016-11-19] MEDS: NACL 0.9% 1000 ML 1,000 ML IV SCH (21:59)
[2016-11-20 05:39] LABS: Basophils % (Auto) 0.6 % (0.0-1.8); Eosinophils % (Auto) 2.8 % (0.0-4.3); Hematocrit 36.4 % (30.3-42.9); Hemoglobin 12.5 gm/dl (10.1-14.3); Mean Corpuscular HGB Conc 34 % (30-34); Mean Corpuscular Hemoglobin 31 pg (28-32); Mean Corpuscular Volume 91 fl (79-97); Platelet Count 131 K/mm3 (140-440); Red Blood Count 4.02 M/mm3 (3.65-5.03); Red Cell Distribution Width 14.5 % (13.2-15.2); White Blood Count 4.3 K/mm3 (4.5-11.0)
[2016-11-20 05:55] LABS: BUN/Creatinine Ratio 12.94; Calcium 8.3 mg/dL (8.4-10.2); Chloride 106.8 mmol/L (98-107); Potassium 4.3 mmol/L (3.6-5.0)
[2016-11-20] MEDS: ASPIRIN PO SCH (09:14)
[2016-11-20] MEDS: LOVENOX SUB-Q SCH (09:15)
[2016-11-20] MEDS: LEVAQUIN PO SCH (09:15)
[2016-11-20] MEDS: NACL 0.9% 1000 ML 1,000 ML IV SCH ×2 (09:22→22:05)
[2016-11-20] MEDS: NOVOLOG SUB-Q SCH ×4 (09:27→22:05)
--- NOTE | 2016-11-20 10:00 | Progress Note ---
Assessment and Plan Assessment and plan: 1. Acute CVA. 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 Patient also with bilateral chronic lacunar infarcts with extensive periventricular microangiopathic ischemic changes. Patient exhibits some left hemiplegia. Continue aspirin. Neurology following. Echocardiogram reveals EF of 60-65% with mild concentric left ventricular hypertrophy--Otherwise normal. Carotid ultrasound revealed 50- 79% stenosis on the right and less than 50% stenosis on the left. Vascular consultation. 2. Syncope. Echocardiogram normal but carotid ultrasound revealed 50-79% stenosis on the right and less than 50% stenosis on the left. Etiology likely secondary to #1. 3. Diabetes mellitus type 2, uncontrolled. Continue sliding-scale regular insulin and Accu-Cheks. 4. Hypertension. Continue antihypertensives medications. 5. Elevated d-dimer. VQ scan negative for PE. 6. Acute renal failure. Etiology likely secondary to vasomotor nephropathy. Continue IV fluid hydration. Continue to monitor renal function and Follow-up BMP in the morning. History Interval history: No new issues overnight. No chest pain or shortness of breath. Hospitalist Physical - Constitutional Vitals: Temp Pulse Resp BP Pulse Ox 97.3 F L 60 20 139/62 96 11/20/16 07:21 11/20/16 07:21 11/20/16 07:21 11/20/16 07:21 11/20/16 07:21 General appearance: Present: no acute distress, other (sisters present in room) - EENT Eyes: Present: PERRL, EOM intact ENT: hearing intact, clear oral mucosa, dentition normal - Neck Neck: Present: supple, normal ROM - Respiratory Respiratory effort: normal Respiratory: bilateral: CTA - Cardiovascular Rhythm: regular Heart Sounds: Present: S1 & S2. Absent: gallop, rub - Extremities Extremities: no ischemia, No edema, Full ROM - Abdominal General gastrointestinal: soft, non-tender, non-distended, normal bowel sounds - Integumentary Integumentary: Present: clear, warm, dry - Neurologic Neurologic: CNII-XII intact, moves all extremities Results - Labs CBC & Chem 7: 11/20/16 04:50 11/20/16 04:50 Labs: Laboratory Last Values WBC 4.3 K/mm3 (4.5-11.0) L 11/20/16 04:50 RBC 4.02 M/mm3 (3.65-5.03) 11/20/16 04:50 Hgb 12.5 gm/dl (10.1-14.3) 11/20/16 04:50 Hct 36.4 % (30.3-42.9) 11/20/16 04:50 MCV 91 fl (79-97) 11/20/16 04:50 MCH 31 pg (28-32) 11/20/16 04:50 MCHC 34 % (30-34) 11/20/16 04:50 RDW 14.5 % (13.2-15.2) 11/20/16 04:50 Plt Count 131 K/mm3 (140-440) L 11/20/16 04:50 Lymph % (Auto) 20.4 % (13.4-35.0) 11/20/16 04:50 [place] % (Auto) 6.4 % (0.0-7.3) 11/20/16 04:50 Eos % (Auto) 2.8 % (0.0-4.3) 11/20/16 04:50 Baso % (Auto) 0.6 % (0.0-1.8) 11/20/16 04:50 Lymph # 0.9 K/mm3 (1.2-5.4) L 11/20/16 04:50 [place] # 0.3 K/mm3 (0.0-0.8) 11/20/16 04:50 Eos # 0.1 K/mm3 (0.0-0.4) 11/20/16 04:50 Baso # 0.0 K/mm3 (0.0-0.1) 11/20/16 04:50 Add Manual Diff Complete 11/17/16 19:10 Total Counted 100 11/17/16 19:10 Seg Neutrophils % 69.8 % (40.0-70.0) 11/20/16 04:50 Seg Neuts % (Manual) 87.0 % (40.0-70.0) H 11/17/16 19:10 Band Neutrophils % 1.0 % 11/17/16 19:10 Lymphocytes % (Manual) 9.0 % (13.4-35.0) L 11/17/16 19:10 Reactive Lymphs % (Man) 0 % 11/17/16 19:10 Monocytes % (Manual) 3.0 % (0.0-7.3) 11/17/16 19:10 Eosinophils % (Manual) 0 % (0.0-4.3) 11/17/16 19:10 Basophils % (Manual) 0 % (0.0-1.8) 11/17/16 19:10 Metamyelocytes % 0 % 11/17/16 19:10 Myelocytes % 0 % 11/17/16 19:10 Promyelocytes % 0 % 11/17/16 19:10 Blast Cells % 0 % 11/17/16 19:10 Nucleated RBC % Not Reportable 11/17/16 19:10 Seg Neutrophils # 3.0 K/mm3 (1.8-7.7) 11/20/16 04:50 Seg Neutrophils # Man 8.0 K/mm3 (1.8-7.7) H 11/17/16 19:10 Band Neutrophils # 0.1 K/mm3 11/17/16 19:10 Lymphocytes # (Manual) 0.8 K/mm3 (1.2-5.4) L 11/17/16 19:10 Abs React Lymphs (Man) 0.0 K/mm3 11/17/16 19:10 Monocytes # (Manual) 0.3 K/mm3 (0.0-0.8) 11/17/16 19:10 Eosinophils # (Manual) 0.0 K/mm3 (0.0-0.4) 11/17/16 19:10 Basophils # (Manual) 0.0 K/mm3 (0.0-0.1) 11/17/16 19:10 Metamyelocytes # 0.0 K/mm3 11/17/16 19:10 Myelocytes # 0.0 K/mm3 11/17/16 19:10 Promyelocytes # 0.0 K/mm3 11/17/16 19:10 Blast Cells # 0.0 K/mm3 11/17/16 19:10 WBC Morphology Not Reportable 11/17/16 19:10 Hypersegmented Neuts Not Reportable 11/17/16 19:10 Hyposegmented Neuts Not Reportable 11/17/16 19:10 Hypogranular Neuts Not Reportable 11/17/16 19:10 Smudge Cells Not Reportable 11/17/16 19:10 Toxic Granulation Not Reportable 11/17/16 19:10 Toxic Vacuolation Not Reportable 11/17/16 19:10 Dohle Bodies Not Reportable 11/17/16 19:10 Pelger-Huet Anomaly Not Reportable 11/17/16 19:10 Cindy Rods Not Reportable 11/17/16 19:10 Platelet Estimate Consistent w auto 11/17/16 19:10 Clumped Platelets Not Reportable 11/17/16 19:10 Plt Clumps, EDTA Not Reportable 11/17/16 19:10 Large Platelets Not Reportable 11/17/16 19:10 Giant Platelets Not Reportable 11/17/16 19:10 Platelet Satelliting Not Reportable 11/17/16 19:10 Plt Morphology Comment Not Reportable 11/17/16 19:10 RBC Morphology Not Reportable 11/17/16 19:10 Dimorphic RBCs Not Reportable 11/17/16 19:10 Polychromasia Not Reportable 11/17/16 19:10 Hypochromasia Not Reportable 11/17/16 19:10 Poikilocytosis Not Reportable 11/17/16 19:10 Anisocytosis 1+ 11/17/16 19:10 Microcytosis Not Reportable 11/17/16 19:10 Macrocytosis Not Reportable 11/17/16 19:10 Spherocytes Not Reportable 11/17/16 19:10 Pappenheimer Bodies Not Reportable 11/17/16 19:10 Sickle Cells Not Reportable 11/17/16 19:10 Target Cells Not Reportable 11/17/16 19:10 Tear Drop Cells Not Reportable 11/17/16 19:10 Ovalocytes 1+ 11/17/16 19:10 Helmet Cells Not Reportable 11/17/16 19:10 [place] Bodies Not Reportable 11/17/16 19:10 [place] Rings Not Reportable 11/17/16 19:10 [place] Cells Not Reportable 11/17/16 19:10 Bite Cells Not Reportable 11/17/16 19:10 Crenated Cell Not Reportable 11/17/16 19:10 Elliptocytes Not Reportable 11/17/16 19:10 Acanthocytes (Spur) Not Reportable 11/17/16 19:10 Rouleaux Not Reportable 11/17/16 19:10 Hemoglobin C Crystals Not Reportable 11/17/16 19:10 Schistocytes Not Reportable 11/17/16 19:10 Malaria parasites Not Reportable 11/17/16 19:10 [place] Bodies Not Reportable 11/17/16 19:10 Hem Pathologist Commnt No 11/17/16 19:10 PT 13.4 Sec. (12.2-14.9) 11/17/16 19:10 INR 1.03 (0.87-1.13) 11/17/16 19:10 APTT 24.1 Sec. (24.2-36.6) L 11/17/16 19:10 Thrombin Time 15.8 Sec. (15.1-19.6) 11/17/16 19:10 D-Dimer > 59776 ng/mlDDU (0-234) H 11/17/16 19:10 Sodium 141 mmol/L (137-145) 11/20/16 04:50 Potassium 4.3 mmol/L (3.6-5.0) 11/20/16 04:50 Chloride 106.8 mmol/L (98-107) 11/20/16 04:50 Carbon Dioxide 23 mmol/L (22-30) 11/20/16 04:50 Anion Gap 16 mmol/L 11/20/16 04:50 BUN 22 mg/dL (7-17) H 11/20/16 04:50 Creatinine 1.7 mg/dL (0.7-1.2) H 11/20/16 04:50 Estimated GFR 36 ml/min 11/20/16 04:50 BUN/Creatinine Ratio 12.94 % 11/20/16 04:50 Glucose 86 mg/dL (65-100) 11/20/16 04:50 POC Glucose 172 (70-105) H 11/19/16 21:16 Lactic Acid 2.5 mmol/L (0.7-2.0) H* 11/17/16 19:10 Calcium 8.3 mg/dL (8.4-10.2) L 11/20/16 04:50 Magnesium 2.1 mg/dL (1.7-2.3) 11/17/16 19:10 Total Bilirubin 0.3 mg/dL (0.1-1.2) 11/17/16 19:10 AST 13 units/L (5-40) 11/17/16 19:10 ALT 11 units/L (7-56) 11/17/16 19:10 Alkaline Phosphatase 83 units/L (35-129) 11/17/16 19:10 Total Creatine Kinase 209 units/L (30-135) H 11/18/16 12:05 CK-MB (CK-2) 1.3 ng/mL (0.0-4.0) 11/18/16 12:05 CK-MB (CK-2) Rel Index 0.6 (0-4) 11/18/16 12:05 Troponin T < 0.010 ng/mL (0.00-0.029) 11/18/16 12:05 Total Protein 8.2 g/dL (6.3-8.2) 11/17/16 19:10 Albumin 4.4 g/dL (3.9-5) 11/17/16 19:10 Albumin/Globulin Ratio 1.2 % 11/17/16 19:10 Triglycerides 81 mg/dL (2-149) 11/18/16 08:06 Cholesterol 187 mg/dL (50-199) 11/18/16 08:06 LDL Cholesterol Direct 127 mg/dL (50-130) 11/18/16 08:06 HDL Cholesterol 44 mg/dL (40-59) 11/18/16 08:06 Cholesterol/HDL Ratio 4.25 % 11/18/16 08:06 TSH 0.592 mlU/mL (0.270-4.200) 11/17/16 19:10 Free T4 0.78 ng/dL (0.76-1.46) 11/17/16 19:10 Urine Color Yellow (Yellow) 11/17/16 22:30 Urine Turbidity Clear (Clear) 11/17/16 22:30 Urine pH 5.0 (5.0-7.0) 11/17/16 22:30 Ur Specific [place] 1.019 (1.003-1.030) 11/17/16 22:30 Urine Protein 100 mg/dl mg/dL (Negative) 11/17/16 22:30 Urine Glucose (UA) Neg mg/dL (Negative) 11/17/16 22:30 Urine Ketones Neg mg/dL (Negative) 11/17/16 22:30 Urine Blood Lg (Negative) 11/17/16 22:30 Urine Nitrite Neg (Negative) 11/17/16 22:30 Urine Bilirubin Neg (Negative) 11/17/16 22:30 Urine Urobilinogen < 2.0 mg/dL (<2.0) 11/17/16 22:30 Ur Leukocyte Esterase Neg (Negative) 11/17/16 22:30 Urine WBC (Auto) 1.0 /HPF (0.0-6.0) 11/17/16 22:30 Urine RBC (Auto) 17.0 /HPF (0.0-6.0) 11/17/16 22:30 U Epithel Cells (Auto) < 1.0 /HPF (0-13.0) 11/17/16 22:30 Urine Mucus Few /HPF 11/17/16 22:30 Salicylates < 0.3 mg/dL (2.8-20.0) L 11/17/16 19:10 Acetaminophen < 15.0 ug/mL (10.0-30.0) 11/17/16 19:10 Plasma/Serum Alcohol < 0.01 gm% (0-0.07) 11/17/16 19:10
--- NOTE | 2016-11-20 12:46 | Consultation ---
History of Present Illness - Reason for Consult Consult date: 11/20/16 carotid stenosis - History of Present Illness Pleasant female presents with left sided weakness, including left foot drag according to daughter. Hx pituitary mass with attempted resection in 2004. Seizure activity and neurological deficit occurred afterwards. Daughter reports improvement since admission. PSV = 155 cm/sec in Right carotid and 72 cm/sec in left. No acute CVA seen on MRI or CT. Patient with no complaints. Motor function intact bilaterally. Some weakness in left leg when walking. Past History Past Medical History: diabetes, hypertension, hypothyroidism, seizures, stroke, other (pituitary mass) Past Surgical History: hysterectomy Social history: lives with family (dtr), smoking Family history: diabetes, hypertension, stroke Medications and Allergies Allergies Allergy/AdvReac Type Severity Reaction Status Date / Time No Known Allergies Allergy Verified 11/17/16 23:23 Home Medications Medication Instructions Recorded Confirmed Last Taken Type Levothyroxine [Synthroid] 25 mcg PO QAM 11/17/16 11/17/16 1 Day Ago History Lisinopril [Zestril] 5 mg PO QDAY 11/17/16 11/17/16 1 Day Ago History Simvastatin [Zocor TAB] 20 mg PO QHS 11/17/16 11/17/16 1 Day Ago History Sitagliptin Phosphate [Januvia] 100 mg PO DAILY 11/17/16 11/17/16 1 Day Ago History amLODIPine [Norvasc] 5 mg PO DAILY 11/17/16 11/17/16 1 Day Ago History glipiZIDE [Glucotrol] 5 mg PO BID 11/17/16 11/17/16 1 Day Ago History Levofloxacin [Levaquin TAB] 500 mg PO QDAY #5 tablet 11/19/16 Unknown Rx Active Meds: Active Medications Acetaminophen (Tylenol) 650 mg PO Q4H PRN PRN Reason: Pain, Mild (1-3) Last Admin: 11/18/16 23:28 Dose: 650 mg Aspirin (Aspirin) 325 mg PO QDAY [facility] Last Admin: 11/20/16 09:14 Dose: 325 mg Bisacodyl (Dulcolax) 10 mg HI QDAY PRN PRN Reason: Constipation Dextrose (D50w (25gm)) 50 ml IV PRN PRN PRN Reason: Hypoglycemia Enoxaparin Sodium (Lovenox) 30 mg SUB-Q QDAY [facility] Last Admin: 11/20/16 09:15 Dose: 30 mg Hydralazine HCl (Apresoline) 5 mg IV Q6H PRN PRN Reason: Keep SBP between 160-185 mm Hg Sodium Chloride (Nacl 0.9% 1000 Ml) 1,000 mls @ 75 mls/hr IV DIRECT [facility] Last Admin: 11/20/16 09:22 Dose: 75 mls/hr Insulin Aspart (Novolog) 0 units SUB-Q ACHS [facility] PRN Reason: Protocol Last Admin: 11/20/16 09:27 Dose: Not Given Levofloxacin (Levaquin) 250 mg PO Q24HR [facility] Last Admin: 11/20/16 09:15 Dose: 250 mg Magnesium Hydroxide (Milk Of Magnesia) 30 ml PO Q4H PRN PRN Reason: Constipation Ondansetron HCl (Zofran) 4 mg IV Q8H PRN PRN Reason: N/V unrelieved by Reglan Simvastatin (Zocor) 20 mg PO QHS [facility] Last Admin: 11/19/16 21:55 Dose: 20 mg Sodium Chloride (Sodium Chloride Flush Syringe 10 Ml) 10 ml IV PRN PRN PRN Reason: LINE FLUSH Review of Systems Constitutional: weakness, no weight loss, no weight gain, no anorexia Ears, nose, mouth and throat: deferred Breasts: deferred Cardiovascular: no chest pain, no palpitations, no dyspnea on exertion, no claudication Respiratory: no cough Gastrointestinal: no abdominal pain Musculoskeletal: muscle weakness, no arm numbness/tingling, no muscle cramps Neurological: no head injury, no syncope, no change in mentation Hematologic/Lymphatic: no easy bruising, no easy bleeding Exam - Constitutional Vitals: Temp Pulse Resp BP Pulse Ox 97.2 F L 64 20 134/66 97 11/20/16 11:47 11/20/16 11:47 11/20/16 11:47 11/20/16 11:47 11/20/16 11:47 General appearance: Present: no acute distress - EENT Eyes: Present: PERRL, EOM intact ENT: hearing intact, clear oral mucosa - Neck Neck: Present: supple, normal ROM - Respiratory Respiratory effort: normal Respiratory: bilateral: CTA - Cardiovascular Rhythm: regular Heart Sounds: Present: S1 & S2 - Extremities Extremities: no ischemia, pulses intact Peripheral Pulses: within normal limits - Abdominal General gastrointestinal: Present: soft, non-tender, non-distended - Integumentary Integumentary: Present: clear, warm, dry - Musculoskeletal Musculoskeletal: strength equal bilaterally - Psychiatric Psychiatric: appropriate mood/affect, intact judgment & insight, cooperative Results - Labs CBC & Chem 7: 11/20/16 04:50 11/20/16 04:50 Labs: Abnormal lab results 11/19/16 11/19/16 11/19/16 Range/Units 07:30 13:07 13:07 WBC (4.5-11.0) K/mm3 Plt Count (140-440) K/mm3 Lymph # 0.8 L (1.2-5.4) K/mm3 Seg Neutrophils % 75.7 H (40.0-70.0) % BUN 24 H (7-17) mg/dL Creatinine 1.8 H (0.7-1.2) mg/dL Glucose 143 H (65-100) mg/dL POC Glucose 69 L (70-105) Calcium 8.3 L (8.4-10.2) mg/dL 11/19/16 11/19/16 11/20/16 Range/Units 16:15 21:16 04:50 WBC 4.3 L (4.5-11.0) K/mm3 Plt Count 131 L (140-440) K/mm3 Lymph # 0.9 L (1.2-5.4) K/mm3 Seg Neutrophils % (40.0-70.0) % BUN (7-17) mg/dL Creatinine (0.7-1.2) mg/dL Glucose (65-100) mg/dL POC Glucose 107 H 172 H (70-105) Calcium (8.4-10.2) mg/dL 11/20/16 Range/Units 04:50 WBC (4.5-11.0) K/mm3 Plt Count (140-440) K/mm3 Lymph # (1.2-5.4) K/mm3 Seg Neutrophils % (40.0-70.0) % BUN 22 H (7-17) mg/dL Creatinine 1.7 H (0.7-1.2) mg/dL Glucose (65-100) mg/dL POC Glucose (70-105) Calcium 8.3 L (8.4-10.2) mg/dL - Imaging and Cardiology CT Scan - head: report reviewed (carotid images and report reviewed) MRI - head: report reviewed Assessment and Plan - Patient Problems (1) Chronic cerebrovascular accident (CVA) Current Visit: Yes Status: Chronic Plan to address problem: Observation for now- consider Plavix, velocities are below surgical threshold. No other compelling findings on duplex. No evidence for acute CVA on imaging. (2) Carotid stenosis, non-symptomatic Current Visit: Yes Status: Acute Plan to address problem: Discussion as above. (3) Pituitary mass Current Visit: Yes Status: Acute Plan to address problem: Prior attempt at resection in past. Unclear significance to current symptoms. Neurological eval.
[2016-11-20] MEDS: ZOCOR PO SCH (22:03)
[2016-11-21 04:55] LABS: Basophils % (Auto) 0.5 % (0.0-1.8); Eosinophils % (Auto) 3.1 % (0.0-4.3); Hematocrit 38.9 % (30.3-42.9); Mean Corpuscular HGB Conc 33 % (30-34); Mean Corpuscular Hemoglobin 30 pg (28-32); Mean Corpuscular Volume 91 fl (79-97); Platelet Count 139 K/mm3 (140-440); Red Blood Count 4.29 M/mm3 (3.65-5.03); Red Cell Distribution Width 14.3 % (13.2-15.2); White Blood Count 3.6 K/mm3 (4.5-11.0)
[2016-11-21 05:19] LABS: BUN/Creatinine Ratio 11.33; Calcium 8.3 mg/dL (8.4-10.2); Chloride 105.6 mmol/L (98-107); Potassium 4.5 mmol/L (3.6-5.0)
[2016-11-21] MEDS: NOVOLOG SUB-Q SCH ×4 (07:45→23:47)
--- NOTE | 2016-11-21 10:49 | Progress Note ---
Assessment and Plan Assessment and plan: 1. Acute CVA. 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 Patient also with bilateral chronic lacunar infarcts with extensive periventricular microangiopathic ischemic changes. Patient exhibits some left hemiplegia. Continue aspirin. Neurology following. Echocardiogram reveals EF of 60-65% with mild concentric left ventricular hypertrophy--Otherwise normal. Carotid ultrasound revealed 50- 79% stenosis on the right and less than 50% stenosis on the left. Appreciate vascular surgery input. 2. Pituitary mass. Patient with long history and previous attempts at resection in the past. Doubt clinical significance to current symptoms. Consider neurosurgery evaluation. 3. Syncope. Echocardiogram normal but carotid ultrasound revealed 50-79% stenosis on the right and less than 50% stenosis on the left. Etiology likely secondary to #1. 4. Diabetes mellitus type 2, uncontrolled. Continue sliding-scale regular insulin and Accu-Cheks. 5. Hypertension. Continue antihypertensives medications. 6. Elevated d-dimer. VQ scan negative for PE. 7. Acute renal failure. Etiology likely secondary to vasomotor nephropathy. Continue IV fluid hydration. Continue to monitor renal function and Follow-up BMP in the morning. 8. Left-sided weakness. Physical therapy recommends acute rehabilitation. Await evaluation. 9. Disposition. Await rehabilitation evaluation. History Interval history: No new issues overnight. No chest pain or shortness of breath. Hospitalist Physical - Constitutional Vitals: Temp Pulse Resp BP Pulse Ox 97.6 F 59 L 20 157/70 97 11/21/16 07:11 11/21/16 07:11 11/21/16 07:11 11/21/16 07:11 11/21/16 07:11 General appearance: Present: no acute distress - EENT Eyes: Present: PERRL, EOM intact ENT: hearing intact, clear oral mucosa, dentition normal - Neck Neck: Present: supple, normal ROM - Respiratory Respiratory effort: normal Respiratory: bilateral: CTA - Cardiovascular Rhythm: regular Heart Sounds: Present: S1 & S2. Absent: gallop, rub - Extremities Extremities: no ischemia, No edema, Full ROM - Abdominal General gastrointestinal: soft, non-tender, non-distended, normal bowel sounds - Integumentary Integumentary: Present: clear, warm, dry - Neurologic Neurologic: CNII-XII intact, moves all extremities Results - Labs CBC & Chem 7: 11/21/16 04:28 11/21/16 04:28 Labs: Laboratory Last Values WBC 3.6 K/mm3 (4.5-11.0) L 11/21/16 04:28 RBC 4.29 M/mm3 (3.65-5.03) 11/21/16 04:28 Hgb 13.0 gm/dl (10.1-14.3) 11/21/16 04:28 Hct 38.9 % (30.3-42.9) 11/21/16 04:28 MCV 91 fl (79-97) 11/21/16 04:28 MCH 30 pg (28-32) 11/21/16 04:28 MCHC 33 % (30-34) 11/21/16 04:28 RDW 14.3 % (13.2-15.2) 11/21/16 04:28 Plt Count 139 K/mm3 (140-440) L 11/21/16 04:28 Lymph % (Auto) 27.3 % (13.4-35.0) 11/21/16 04:28 [place] % (Auto) 7.5 % (0.0-7.3) H 11/21/16 04:28 Eos % (Auto) 3.1 % (0.0-4.3) 11/21/16 04:28 Baso % (Auto) 0.5 % (0.0-1.8) 11/21/16 04:28 Lymph # 1.0 K/mm3 (1.2-5.4) L 11/21/16 04:28 [place] # 0.3 K/mm3 (0.0-0.8) 11/21/16 04:28 Eos # 0.1 K/mm3 (0.0-0.4) 11/21/16 04:28 Baso # 0.0 K/mm3 (0.0-0.1) 11/21/16 04:28 Add Manual Diff Complete 11/17/16 19:10 Total Counted 100 11/17/16 19:10 Seg Neutrophils % 61.6 % (40.0-70.0) 11/21/16 04:28 Seg Neuts % (Manual) 87.0 % (40.0-70.0) H 11/17/16 19:10 Band Neutrophils % 1.0 % 11/17/16 19:10 Lymphocytes % (Manual) 9.0 % (13.4-35.0) L 11/17/16 19:10 Reactive Lymphs % (Man) 0 % 11/17/16 19:10 Monocytes % (Manual) 3.0 % (0.0-7.3) 11/17/16 19:10 Eosinophils % (Manual) 0 % (0.0-4.3) 11/17/16 19:10 Basophils % (Manual) 0 % (0.0-1.8) 11/17/16 19:10 Metamyelocytes % 0 % 11/17/16 19:10 Myelocytes % 0 % 11/17/16 19:10 Promyelocytes % 0 % 11/17/16 19:10 Blast Cells % 0 % 11/17/16 19:10 Nucleated RBC % Not Reportable 11/17/16 19:10 Seg Neutrophils # 2.2 K/mm3 (1.8-7.7) 11/21/16 04:28 Seg Neutrophils # Man 8.0 K/mm3 (1.8-7.7) H 11/17/16 19:10 Band Neutrophils # 0.1 K/mm3 11/17/16 19:10 Lymphocytes # (Manual) 0.8 K/mm3 (1.2-5.4) L 11/17/16 19:10 Abs React Lymphs (Man) 0.0 K/mm3 11/17/16 19:10 Monocytes # (Manual) 0.3 K/mm3 (0.0-0.8) 11/17/16 19:10 Eosinophils # (Manual) 0.0 K/mm3 (0.0-0.4) 11/17/16 19:10 Basophils # (Manual) 0.0 K/mm3 (0.0-0.1) 11/17/16 19:10 Metamyelocytes # 0.0 K/mm3 11/17/16 19:10 Myelocytes # 0.0 K/mm3 11/17/16 19:10 Promyelocytes # 0.0 K/mm3 11/17/16 19:10 Blast Cells # 0.0 K/mm3 11/17/16 19:10 WBC Morphology Not Reportable 11/17/16 19:10 Hypersegmented Neuts Not Reportable 11/17/16 19:10 Hyposegmented Neuts Not Reportable 11/17/16 19:10 Hypogranular Neuts Not Reportable 11/17/16 19:10 Smudge Cells Not Reportable 11/17/16 19:10 Toxic Granulation Not Reportable 11/17/16 19:10 Toxic Vacuolation Not Reportable 11/17/16 19:10 Dohle Bodies Not Reportable 11/17/16 19:10 Pelger-Huet Anomaly Not Reportable 11/17/16 19:10 Cindy Rods Not Reportable 11/17/16 19:10 Platelet Estimate Consistent w auto 11/17/16 19:10 Clumped Platelets Not Reportable 11/17/16 19:10 Plt Clumps, EDTA Not Reportable 11/17/16 19:10 Large Platelets Not Reportable 11/17/16 19:10 Giant Platelets Not Reportable 11/17/16 19:10 Platelet Satelliting Not Reportable 11/17/16 19:10 Plt Morphology Comment Not Reportable 11/17/16 19:10 RBC Morphology Not Reportable 11/17/16 19:10 Dimorphic RBCs Not Reportable 11/17/16 19:10 Polychromasia Not Reportable 11/17/16 19:10 Hypochromasia Not Reportable 11/17/16 19:10 Poikilocytosis Not Reportable 11/17/16 19:10 Anisocytosis 1+ 11/17/16 19:10 Microcytosis Not Reportable 11/17/16 19:10 Macrocytosis Not Reportable 11/17/16 19:10 Spherocytes Not Reportable 11/17/16 19:10 Pappenheimer Bodies Not Reportable 11/17/16 19:10 Sickle Cells Not Reportable 11/17/16 19:10 Target Cells Not Reportable 11/17/16 19:10 Tear Drop Cells Not Reportable 11/17/16 19:10 Ovalocytes 1+ 11/17/16 19:10 Helmet Cells Not Reportable 11/17/16 19:10 Lamb-[place] Bodies Not Reportable 11/17/16 19:10 [place] Rings Not Reportable 11/17/16 19:10 [place] Cells Not Reportable 11/17/16 19:10 Bite Cells Not Reportable 11/17/16 19:10 Crenated Cell Not Reportable 11/17/16 19:10 Elliptocytes Not Reportable 11/17/16 19:10 Acanthocytes (Spur) Not Reportable 11/17/16 19:10 Rouleaux Not Reportable 11/17/16 19:10 Hemoglobin C Crystals Not Reportable 11/17/16 19:10 Schistocytes Not Reportable 11/17/16 19:10 Malaria parasites Not Reportable 11/17/16 19:10 [place] Bodies Not Reportable 11/17/16 19:10 Hem Pathologist Commnt No 11/17/16 19:10 PT 13.4 Sec. (12.2-14.9) 11/17/16 19:10 INR 1.03 (0.87-1.13) 11/17/16 19:10 APTT 24.1 Sec. (24.2-36.6) L 11/17/16 19:10 Thrombin Time 15.8 Sec. (15.1-19.6) 11/17/16 19:10 D-Dimer > 65542 ng/mlDDU (0-234) H 11/17/16 19:10 Sodium 139 mmol/L (137-145) 11/21/16 04:28 Potassium 4.5 mmol/L (3.6-5.0) 11/21/16 04:28 Chloride 105.6 mmol/L (98-107) 11/21/16 04:28 Carbon Dioxide 23 mmol/L (22-30) 11/21/16 04:28 Anion Gap 15 mmol/L 11/21/16 04:28 BUN 17 mg/dL (7-17) 11/21/16 04:28 Creatinine 1.5 mg/dL (0.7-1.2) H 11/21/16 04:28 Estimated GFR 41 ml/min 11/21/16 04:28 BUN/Creatinine Ratio 11.33 % 11/21/16 04:28 Glucose 97 mg/dL (65-100) 11/21/16 04:28 POC Glucose 147 (70-105) H 11/20/16 21:00 Lactic Acid 2.5 mmol/L (0.7-2.0) H* 11/17/16 19:10 Calcium 8.3 mg/dL (8.4-10.2) L 11/21/16 04:28 Magnesium 2.1 mg/dL (1.7-2.3) 11/17/16 19:10 Total Bilirubin 0.3 mg/dL (0.1-1.2) 11/17/16 19:10 AST 13 units/L (5-40) 11/17/16 19:10 ALT 11 units/L (7-56) 11/17/16 19:10 Alkaline Phosphatase 83 units/L (35-129) 11/17/16 19:10 Total Creatine Kinase 209 units/L (30-135) H 11/18/16 12:05 CK-MB (CK-2) 1.3 ng/mL (0.0-4.0) 11/18/16 12:05 CK-MB (CK-2) Rel Index 0.6 (0-4) 11/18/16 12:05 Troponin T < 0.010 ng/mL (0.00-0.029) 11/18/16 12:05 Total Protein 8.2 g/dL (6.3-8.2) 11/17/16 19:10 Albumin 4.4 g/dL (3.9-5) 11/17/16 19:10 Albumin/Globulin Ratio 1.2 % 11/17/16 19:10 Triglycerides 81 mg/dL (2-149) 11/18/16 08:06 Cholesterol 187 mg/dL (50-199) 11/18/16 08:06 LDL Cholesterol Direct 127 mg/dL (50-130) 11/18/16 08:06 HDL Cholesterol 44 mg/dL (40-59) 11/18/16 08:06 Cholesterol/HDL Ratio 4.25 % 11/18/16 08:06 TSH 0.592 mlU/mL (0.270-4.200) 11/17/16 19:10 Free T4 0.78 ng/dL (0.76-1.46) 11/17/16 19:10 Urine Color Yellow (Yellow) 11/17/16 22:30 Urine Turbidity Clear (Clear) 11/17/16 22:30 Urine pH 5.0 (5.0-7.0) 11/17/16 22:30 Ur Specific [place] 1.019 (1.003-1.030) 11/17/16 22:30 Urine Protein 100 mg/dl mg/dL (Negative) 11/17/16 22:30 Urine Glucose (UA) Neg mg/dL (Negative) 11/17/16 22:30 Urine Ketones Neg mg/dL (Negative) 11/17/16 22:30 Urine Blood Lg (Negative) 11/17/16 22:30 Urine Nitrite Neg (Negative) 11/17/16 22:30 Urine Bilirubin Neg (Negative) 11/17/16 22:30 Urine Urobilinogen < 2.0 mg/dL (<2.0) 11/17/16 22:30 Ur Leukocyte Esterase Neg (Negative) 11/17/16 22:30 Urine WBC (Auto) 1.0 /HPF (0.0-6.0) 11/17/16 22:30 Urine RBC (Auto) 17.0 /HPF (0.0-6.0) 11/17/16 22:30 U Epithel Cells (Auto) < 1.0 /HPF (0-13.0) 11/17/16 22:30 Urine Mucus Few /HPF 11/17/16 22:30 Salicylates < 0.3 mg/dL (2.8-20.0) L 11/17/16 19:10 Acetaminophen < 15.0 ug/mL (10.0-30.0) 11/17/16 19:10 Plasma/Serum Alcohol < 0.01 gm% (0-0.07) 11/17/16 19:10
[2016-11-21] MEDS: LOVENOX SUB-Q SCH (14:28)
[2016-11-21] MEDS: LEVAQUIN PO SCH (14:28)
[2016-11-21] MEDS: NACL 0.9% 1000 ML 1,000 ML IV SCH (14:28)
[2016-11-21] MEDS: ASPIRIN PO SCH (14:28)
[2016-11-21] MEDS: ZOCOR PO SCH (22:05)
[2016-11-22 05:22] LABS: Basophils % (Auto) 0.5 % (0.0-1.8); Hematocrit 38.2 % (30.3-42.9); Hemoglobin 12.9 gm/dl (10.1-14.3); Mean Corpuscular HGB Conc 34 % (30-34); Mean Corpuscular Hemoglobin 31 pg (28-32); Mean Corpuscular Volume 91 fl (79-97); Platelet Count 132 K/mm3 (140-440); Red Blood Count 4.21 M/mm3 (3.65-5.03); Red Cell Distribution Width 14.4 % (13.2-15.2); White Blood Count 3.4 K/mm3 (4.5-11.0)
[2016-11-22 05:40] LABS: BUN/Creatinine Ratio 11.33; Calcium 8.4 mg/dL (8.4-10.2); Chloride 105.2 mmol/L (98-107); Potassium 4.7 mmol/L (3.6-5.0)
[2016-11-22] MEDS: NACL 0.9% 1000 ML 1,000 ML IV SCH (05:59)
[2016-11-22] MEDS: NOVOLOG SUB-Q SCH ×2 (08:11→12:41)
--- NOTE | 2016-11-22 08:13 | Vascular Lab Report ---
CAROTID DUPLEX STUDY: RIGHT PSVEDV CCA PROX: 8415 CCA DIST:03392 ICA PROX:55715 ICA MID:15646 ICA DIST: 6515 ECA: 103 VERT: 35 8 LEFT PSVEDV CCA PROX: 9416 CCA DIST: 65 8 ICA PROX: 6914 ICA MID: 7314 ICA DIST: 6916 ECA: 103 VERT: 42 10 REASON FOR EXAM: Stroke. COMMENTS ON THE RIGHT: Doppler frequency analysis is consistent with and 50 to 79 percent diameter reduction of the internal carotid artery. The moderate amount of homogenous plaque is seen in the common carotid, carotid bulb and internal carotid arteries The common carotid artery is patent. The external carotid artery is patent. The vertebral artery has antegrade flow. COMMENTS ON THE LEFT: Doppler frequency analysis is consistent with 16 to 49 percent diameter reduction of the internal carotid artery. Minimal amount of plaque is seen. The common carotid artery is patent. The external carotid artery is patent. The vertebral artery has antegrade flow. IMPRESSION: 50 to 79 percent diameter reduction of the right internal carotid artery. 16 to 49 percent diameter reduction of the left internal carotid artery Clinical correlation recommended. Followup CTA or MRA of the neck may be required
[2016-11-22] MEDS: LEVAQUIN PO SCH (09:36)
[2016-11-22] MEDS: ASPIRIN PO SCH (09:36)
[2016-11-22] MEDS: LOVENOX SUB-Q SCH (09:36)
--- NOTE | 2016-11-22 10:34 | Discharge Summary ---
Providers - Providers Date of Admission: 11/17/16 22:54 Date of discharge: 11/22/16 Attending physician: CARLTON ARIZMENDI MD 11/18/16 05:37 Consult to Physician [CONS] Routine Consulting Provider: SADIA REBOLLEDO Reason For Exam: cva Notified:: secretary administrative assistant pl call 11/19/16 08:38 Consult Acute Rehabilitation [CONS] Routine Consulting Provider: VENU JEFFERSON Reason For Exam: cva 11/20/16 10:00 Consult to Physician [CONS] Routine Consulting Provider: KARIN MARTE Reason For Exam: right carotid stenosis Place consult to:: Dr. Marte Notified:: Sarah FERRARI Phone number called:: Was contact made?: Yes If yes, spoke with:: [facility] Time called:: 11:59 Hospitalization Reason for admission: syncope Condition: Stable Hospital course: Patient is a pleasant 71-year-old woman history of hypertension, diabetes, hypothyroidism comes to the emergency room because while she was sitting at home she had a syncopal episode that lasted for 5 minutes. Family state that she had difficulty walking, she is confused. The brought her to the emergency room for further evaluation Patient denies chest pain, palpitation, shortness of breath, cough, abdominal pain, hematochezia, dysuria, frequency, dysarthria , fever chills, polydipsia polyuria, hot or cold intolerance, easy bruisability , or rash or bleeding from mucosal membrane, rhinorrhea, epistaxis, earache, tinnitus, blurry vision, eye discharge, anxiety, depression. Other review of systems negative. Patient was seen by neurology with no evidence of CVA on MRI. Patient was also seen by vascular physician for evaluation of carotid recommendation the patient should be started on Plavix and no surgical intervention at this point. But neurology and vascular surgeon also recommended patient be seen by a neurosurgeon outpatient, for pituitary mass which the family is already well. She appears clinically stable today discontinued and patient is discharged home with home health. Disposition: DC/TX HOME UNDER HOME HEALTH Time spent for discharge: 35 mins - Discharge Diagnoses (1) Carotid stenosis, non-symptomatic Status: Acute (2) Pituitary mass Status: Chronic (3) Chronic cerebrovascular accident (CVA) Status: Chronic (4) Hemiparesis affecting left side as late effect of cerebrovascular accident Status: Chronic (5) Diabetes mellitus Status: Chronic Qualifiers: Diabetes mellitus type: type 2 (6) HTN (hypertension) Status: Chronic Core Measure Documentation - Palliative Care Palliative Care/ Comfort Measures: Not Applicable - Core Measures Any of the following diagnoses?: heart failure - VTE Discharge Requirements Deep Vein Thrombosis/Pulmonary Embolism Present on Admission: No - Heart Failure Discharge Requirements FELICITY/ARB for LVSD if EF <40%: Not Applicable Beta osmel at discharge: No Reason for no beta osmel on DC: Bradycardia Exam - Physical Exam Narrative exam: VITAL SIGNS: Reviewed. GENERAL: The patient appeared well nourished and normally developed. Vital signs as documented. HEAD: No signs of head trauma. EYES: Pupils are equal. Extraocular motions intact. EARS: Hearing grossly intact. MOUTH: Oropharynx is normal. NECK: No adenopathy, no JVD. CHEST: Chest with clear breath sounds bilaterally. No wheezes, rales, or rhonchi. CARDIAC: Regular rate and rhythm. S1 and S2, without murmurs, gallops, or rubs. VASCULAR: No Edema. Peripheral pulses normal and equal in all extremities. ABDOMEN: Soft, without detectable tenderness. No sign of distention. No rebound or guarding, and no masses palpated. Bowel Sounds normal. MUSCULOSKELETAL: Good range of motion of all major joints. Extremities without clubbing, cyanosis or edema. NEUROLOGIC EXAM: Alert and oriented x 3. Left-sided weakness motor strenght 3/ 5. Speech normal. Follows commands. PSYCHIATRIC: Mood normal. SKIN: No rash or lesions. - Constitutional Vitals: Temp Pulse Resp BP Pulse Ox 98.1 F 52 L 18 149/74 98 11/22/16 08:28 11/22/16 08:28 11/22/16 08:28 11/22/16 08:28 11/22/16 08:28 Plan Activity: advance as tolerated, fall precautions Diet: low cholesterol, diabetic Special Instructions: record daily BP diary, physical therapy, occupational therapy Additional Instructions: Needs outpatient Neurosurgical evaluation to be arranged by PCP Follow up with: REJI WORRELL [Other] - 3-5 Days ARNALDO MIX MD [Staff Physician] - 7 Days Prescriptions: Clopidogrel [Plavix] 75 mg PO QDAY #30 tablet
[2016-11-22 12:34] VITALS: BP 167/78
== END 2016-11-22 15:00 | disposition home health service (06) | DRG 67 ==
LOC: ED 17:52 → 4A 22:54
PROVIDERS: ADMIT Internal Medicine; ATTEND Internal Medicine
DX: I65.23 Occlusion and stenosis of bilateral carotid arteries (principal); N17.0 Acute kidney failure with tubular necrosis; R65.10 Systemic inflammatory response syndrome (SIRS) of non-infectious origin without acute organ dysfunction; I69.354 Hemiplegia and hemiparesis following cerebral infarction affecting left non-dominant side; G40.909 Epilepsy, unspecified, not intractable, without status epilepticus; I10 Essential (primary) hypertension; F17.210 Nicotine dependence, cigarettes, uncomplicated; E03.9 Hypothyroidism, unspecified; D35.2 Benign neoplasm of pituitary gland; E11.65 Type 2 diabetes mellitus with hyperglycemia; R79.1 Abnormal coagulation profile; R26.9 Unspecified abnormalities of gait and mobility; Z98.890 Other specified postprocedural states; Z90.710 Acquired absence of both cervix and uterus; Z79.899 Other long term (current) drug therapy; Z79.84 Long term (current) use of oral hypoglycemic drugs; Z82.3 Family history of stroke; Z83.3 Family history of diabetes mellitus; Z82.49 Family history of ischemic heart disease and other diseases of the circulatory system
CPT/HCPCS: 36415; 70450; 70551; 71010; 78582; 80048; 80053; 80061; 80320; 81001; 82140; 82550; 82553; 82962; 83735; 84439; 84443; 84484; 85007; 85025; 85379; 85610; 85670; 85730; 87040; 93005; 93010; 93306; 93880; 96372; A9540; A9558; G0480; G8978-GP; G8979-GP; G8987-GO; G8988-GO; J1650; J1815; J7030